=== PATIENT | female | born 1965 | race Caucasian/White ===

== ENCOUNTER 2021-03-23 14:26 | Emergency (ER) | payer BC, SELFPAY ==
--- NOTE | ~2021-03-23 | CT_ITS ---
EXAMINATION: CT HEAD WITHOUT CONTRAST CT CERVICAL SPINE WITHOUT CONTRAST CLINICAL INFORMATION: Fall. COMPARISON: None. TECHNIQUE: Multidetector CT imaging of the head and cervical spine was performed without the use of intravenous contrast. Multiplanar reformats are reviewed. This CT examination was performed using dose optimization techniques as appropriate, variously including the following: *Automated exposure control *Adjustment of mA and/or kV according to patient size (this includes techniques or standardized protocols for targeted exams where dose is matched to indication/reason for exam; i.e. extremities or head) *Use of iterative reconstruction technique DLP: 945 mGy-cm. FINDINGS: There is no evidence of acute intracranial hemorrhage or territorial infarction. No abnormal mass effect or midline shift is seen. Melendez to white matter differentiation is well preserved. No extra-axial fluid collections are identified. The ventricles are normal in size. There is no abnormal attenuation within the brain parenchyma. The osseous structures and soft tissues are normal. The mastoid air cells and visualized portions of the paranasal sinuses are well-aerated. Atlantooccipital alignment is maintained. The vertebral bodies and posterior elements align normally. No acute fracture or subluxation. Vertebral body heights are maintained.Endplate osteophytes present at C5-C6 and C6-C7 with accompanying uncovertebral arthrosis. This leads to mild bilateral foraminal narrowing at C5-C6. The cervicomedullary junction and spinal cord are grossly unremarkable. The paraspinal soft tissues are unremarkable. The imaged lung apices are clear CT/CT head/brain wo con IMPRESSION: No acute intracranial pathology. No cervical spine fracture or malalignment.
--- NOTE | ~2021-03-23 | CT_ITS ---
EXAMINATION: CT HEAD WITHOUT CONTRAST CT CERVICAL SPINE WITHOUT CONTRAST CLINICAL INFORMATION: Fall. COMPARISON: None. TECHNIQUE: Multidetector CT imaging of the head and cervical spine was performed without the use of intravenous contrast. Multiplanar reformats are reviewed. This CT examination was performed using dose optimization techniques as appropriate, variously including the following: *Automated exposure control *Adjustment of mA and/or kV according to patient size (this includes techniques or standardized protocols for targeted exams where dose is matched to indication/reason for exam; i.e. extremities or head) *Use of iterative reconstruction technique DLP: 945 mGy-cm. FINDINGS: There is no evidence of acute intracranial hemorrhage or territorial infarction. No abnormal mass effect or midline shift is seen. Melendez to white matter differentiation is well preserved. No extra-axial fluid collections are identified. The ventricles are normal in size. There is no abnormal attenuation within the brain parenchyma. The osseous structures and soft tissues are normal. The mastoid air cells and visualized portions of the paranasal sinuses are well-aerated. Atlantooccipital alignment is maintained. The vertebral bodies and posterior elements align normally. No acute fracture or subluxation. Vertebral body heights are maintained.Endplate osteophytes present at C5-C6 and C6-C7 with accompanying uncovertebral arthrosis. This leads to mild bilateral foraminal narrowing at C5-C6. The cervicomedullary junction and spinal cord are grossly unremarkable. The paraspinal soft tissues are unremarkable. The imaged lung apices are clear CT/CT cervical spine wo con IMPRESSION: No acute intracranial pathology. No cervical spine fracture or malalignment.
[2021-03-23 14:28] VITALS: BP 154/99; BP 162/80; PULSE 73; PULSE 80; RESP 18; TEMP 36.9; O2SAT 98; BMI 27.9
[2021-03-23 14:33] VITALS: BP 162/80; PULSE 73; RESP 18; O2SAT 97
--- NOTE | 2021-03-23 14:39 | ED.FALL ---
HPI - Fall General Chief Complaint: Fall Stated Complaint: fell, lower back pain Time Seen by Provider: 03/23/21 14:38 Source: patient Mode of arrival: ambulatory Limitations: no limitations History of Present Illness HPI Narrative: 55-year-old female who is brought to the emergency department by ambulance for evaluation of injuries from a fall. The patient was walking on hardwood floors with socks. She states that she slipped and her feet went out from under her causing her to fall backwards. She states that she landed on her head and then struck her ?tail bone ? on the floor. She had no loss of consciousness. She was unable to get off the floor. She called her cyst to her then called an ambulance. In route to the hospital the patient did complain of nausea and was given Zofran 4 mg IV by the paramedics. Here in the emergency department the patient is complaining of a headache. She states that the pain is located on the back of her head, the pain is constant, hard to describe and 3/10 at its worst. She is also complaining pain in her lower back along her tailbone area. She states that this pain is constant, hard to describe and 3/10. She denies any numbness or weakness. She denies chest pain or abdominal pain. The patient states that she completed her [employer] COVID 19 2 shot vaccination in January of 2021. Related Data Home Medications Medication Instructions Recorded Confirmed Fosamax 1 tab PO QWEEK 03/23/21 03/23/21 Previous Rx's Medication Instructions Recorded ondansetron 4 mg PO Q6-8H PRN #14 tab 03/23/21 Allergies Allergy/AdvReac Type Severity Reaction Status Date / Time No Known Allergies Allergy Unverified 07/10/20 15:52 Review of Systems Review of Systems: Yes all other systems are reviewed and are negative [facility] Past Medical History [facility] Narrative: Past medical history: Osteoporosis. Surgical history: Herniated disc with laparoscopic surgery to L5-S1. Social history: She denies tobacco, alcohol and drug use. Medical History (Updated 03/23/21 @ 16:32 by Leandro Churchill MD) Age related osteoporosis Herniated disc Social History Social History Alcohol intake: never Patient Tobacco Use Status: Never used Tobacco Use of substances other than those prescribed or required for medical reasons: No Advance Directives: No Advance Directives Information Provided: Yes Patient : No Physical Exam Vital Signs: Vital Signs: Last Vital Signs Temp 98.4 F 03/23/21 14:28 Pulse 73 03/23/21 14:33 Resp 18 03/23/21 14:33 BP 162/80 H 03/23/21 14:33 Pulse Ox 97 03/23/21 14:33 Body Mass Index 27.9 Const: General: cooperative; No in distress Orientation/consciousness: oriented to person and oriented to place Limitations: no limitations HENMT: Head: Yes normal to inspection, Yes normocephalic and Yes atraumatic Ears: external ears normal General nose exam: Normal external nose present Face and sinus: Yes normal facial exam Mouth: Normal oral and palatal mucosa present Throat: Yes posterior oropharynx normal Eyes: Periorbital: periorbital findings normal Eyelids: Yes eyelids normal Conjunctivae: conjunctivae normal Sclerae: sclerae normal Corneas: corneas normal Pupils: Equal, round and reactive pupils present Direct Ophthalmoscopy: normal light reflex Neck: Neck: Yes no lymphadenopathy, Yes trachea midline and Yes tender (Moderate, mid C-spine tenderness) Chest: Chest palpation & inspection: normal inspection of the chest and normal palpation of entire chest wall Resp: Effort & Inspection: normal respiratory effort and able to speak in complete sentences Auscultation: clear to auscultation bilaterally Cardio: Rate: regular rate Rhythm: regular rhythm Heart sounds: S1 normal heart sound present, S2 normal heart sound present and no murmurs GI: Inspection: Yes normal to inspection Palpation (GI): Soft to palpation, nontender, no guarding, not rigid and No hepatosplenomegaly present : General: Yes no CVA tenderness Back/Spine/Pelvis: Back: no CVA tenderness Cervical Spine: normal cervical lordosis Thoracic/Lumbar Spine: thoracic and lumbar spine normal to inspection Skin: Lesions: no lesions Rashes: no rashes Wounds: no wounds Neuro: General: oriented to person and oriented to place Cranial nerves: Yes CN's II-XII intact bilaterally and Yes Equal, round and reactive pupils present Cognition (Neuro): normal cognition Motor exam (neuro): 5/5 motor strength present throughout Extrem: General: Yes normal to inspection and Yes full ROM Psych: Appearance: well kempt Mental Status: mental status grossly normal Speech and movement: Normal speech and movement present Affect: normal affect Attitude: cooperative Thought process: Normal thought process present Thought content: Normal thought content present Course Course Course Narrative: 55-year-old female who presents emergency department for evaluation of injuries from a slip and fall at home. The patient did strike her head and lower back on the floor. She had no loss of consciousness. She is complaining of a headache and nausea and was given Zofran 4 mg IV EN route to the hospital with improvement of her nausea. The patient states that her headache and lower back pain or 3/10 at its worst. Physical examination did reveal posterior head tenderness as well as cervical spine tenderness. I ordered a CT scan of the head and cervical spine without IV contrast. The patient does not want any pain medications at this time. 1626: Patient's CT scan of the head and cervical spine revealed no acute fractures or bleed. The patient was taken out of C-spine precautions. I did examine the patient's back, there is no ecchymosis noted. The patient has no point tenderness over her vertebrae, there is no point tenderness over her coccyx region. The patient's presentation is consistent with acute head injury with concussion, cervical sprain and back contusion. Patient was given ibuprofen 600 mg orally for her pain and Zofran 4 mg ODT for her nausea. She was given printed instructions on head injury, neck sprain and contusions. She was advised to take ibuprofen and Tylenol for pain. She was also advised to take Zofran 4 mg ODT Q 8 hours as needed for pain. Discharge Plan Discharge Clinical Impression: Fall from slip, trip, or stumble, Head injury, Acute neck sprain, Back contusion Patient Disposition: Home, Self-Care Instructions: Cervical Strain (ED), Head Injury (ED) Additional Instructions: The CT scan of your head and neck revealed no broken bones and no bleeding in the brain which is reassuring. You sustained a concussion from your head injury. You strained the muscles of your neck from your fall. You also have bruising of your back from your fall. Take ibuprofen 200 mg pills, 3 pills every 6 hours as needed for pain. Take Tylenol (acetaminophen) 500 mg pills, 2 pills every 6 hours as needed for pain. For nausea and vomiting take Zofran (ondansetron) 4 mg oral dissolving tablets, 1 tablet dissolved in your mouth every 8 hours as needed. Follow-up with your doctor in 2 days. Please return to the emergency department if your symptoms get worse or if you develop any symptoms that are concerning to you. Prescriptions: New ondansetron 4 mg tablet,disintegrating 4 mg PO Q6-8H PRN (Reason: nausea and vomiting) Qty: 14 RF: 0 No Action Fosamax 1 tab PO QWEEK RF: 0 Stand Alone Forms: Work/School Release
[2021-03-23] MEDS: ondansetron HCL 4 MG/2 ML VIAL IVPUSH (17:04)
[2021-03-23] MEDS: Ibuprofen 600 MG TABLET PO (17:04)
--- NOTE | 2021-03-23 17:16 | PC.NURSE ---
heplock removed and pressure bandage applied. discharge instructions given to pt and spouse. Pt denies any questions. Pt is ambulatory to exit in no distress
== END 2021-03-23 17:17 | disposition home or self-care (01) ==
PROVIDERS: Emergency Provider Emergency Medicine Emergency Medical Services; PCP Nurse Practitioner Family
DX: S09.90XA Unspecified injury of head, initial encounter (principal); S13.9XXA Sprain of joints and ligaments of unspecified parts of neck, initial encounter; S30.0XXA Contusion of lower back and pelvis, initial encounter; W01.0XXA Fall on same level from slipping, tripping and stumbling without subsequent striking against object, initial encounter; Y93.89 Activity, other specified; Y92.019 Unspecified place in single-family (private) house as the place of occurrence of the external cause; Y99.9 Unspecified external cause status
CPT/HCPCS: 70450; 72125; 96374; 99284; J2405

== ENCOUNTER → 2021-09-09 09:50 | Outpatient (BNVA) | payer BC, SELFPAY | PROVIDERS: PCP Nurse Practitioner Family; Visit Provider Physician Assistant | DX: M77.11 Lateral epicondylitis, right elbow (principal); M77.12 Lateral epicondylitis, left elbow | CPT/HCPCS: 20551; J1100 ==

== ENCOUNTER 2021-09-29 10:00 | Outpatient (RCR) | payer BC, SELFPAY | END 2021-11-20 11:41 | disposition home or self-care (01) | LOC: HO.OT 10:00 | PROVIDERS: PCP Nurse Practitioner Family; Visit Provider Physician Assistant | DX: M77.11 Lateral epicondylitis, right elbow (principal); M77.12 Lateral epicondylitis, left elbow | CPT/HCPCS: 97110; 97140; 97166 ==

== ENCOUNTER 2021-11-30 12:47 | Emergency (ER) | payer BC, SELFPAY ==
--- NOTE | ~2021-11-30 | CT_ITS ---
EXAMINATION: CT HEAD WITHOUT CONTRAST CLINICAL INFORMATION: Fall with head injury. COMPARISON: None TECHNIQUE: Contiguous axial imaging was performed from the skull base to vertex without intravenous administration of contrast. This CT examination was performed using dose optimization techniques as appropriate, variously including the following: *Automated exposure control *Adjustment of mA and/or kV according to patient size (this includes techniques or standardized protocols for targeted exams where dose is matched to indication/reason for exam; i.e. extremities or head) *Use of iterative reconstruction technique DLP: 642 mGy-cm FINDINGS: There is no evidence of acute intracranial hemorrhage or territorial infarction. No abnormal mass effect or midline shift is seen. Melendez to white matter differentiation is well preserved. No extra-axial fluid collections are identified. The ventricles are normal in size. There is no abnormal attenuation within the brain parenchyma. The osseous structures and soft tissues are normal. The mastoid air cells and visualized portions of the paranasal sinuses are well aerated. CT/CT head/brain wo con IMPRESSION: No acute intracranial process seen..
[2021-11-30 12:49] VITALS: BP 153/83; PULSE 91; RESP 16; TEMP 36.8; O2SAT 96; BMI 28.3
--- NOTE | 2021-11-30 13:44 | ED_ITS ---
HPI - Fall General Chief Complaint: Fall Stated Complaint: fall - head injury Time Seen by Provider: 11/30/21 13:41 Source: patient Mode of arrival: ambulatory Limitations: no limitations History of Present Illness HPI Narrative: Patient is a 56 year old female presenting to the emergency department today with a headache after a slip and fall accident. Patient states that she slipped on the ice today and hit the back of her head. Patient states that she is now having a headache. Patient states that she hit her head and had a concussion similar to this in February of last year. Patient denies any loss of consciousness with the incident. Patient denies any other injuries from the incident. Patient denies any dizziness, lightheadedness, abdominal pain, nausea, vomiting, fever, chills, blurry vision, double vision, loss of vision, chest pain, difficulty breathing, shortness of breath, back pain, night sweats, pain with urination, increased urinary frequency, increased urinary urgency, blood in her urine or stool, syncope or a near syncopal episode, bowel incontinence, bladder incontinence, bowel retention, bladder retention, or any other complaints at this time. Patient denies any anti-coagulation use. MD complaint: fall Onset (ago): minute(s) Fall from: standing Fall witnessed: no Place fall occurred: home Loss of consciousness: none Prolonged down time: no Symptoms prior to fall: none Severity: mild Related Data Home Medications Medication Instructions Recorded Confirmed Fosamax 1 tab PO QWEEK 03/23/21 03/23/21 Previous Rx's Medication Instructions Recorded ondansetron 4 mg disintegrating 4 mg PO Q6-8H PRN #14 tab 03/23/21 tablet Allergies Allergy/AdvReac Type Severity Reaction Status Date / Time No Known Allergies Allergy Verified 11/30/21 12:49 Review of Systems Constitutional: Constitutional: Reports no additional constitutional complaints, Denies chills, Denies fever(s) and Denies night sweats Eyes: Eyes: Reports no additional eye complaints, Denies blurry vision, Denies change in vision, Denies diplopia, Denies eye discharge, Denies loss of vision and Denies eye pain ENT: Denies dizziness Cardiovascular: Cardiovascular: Reports no additional cardiovascular complaints, Denies chest pain, Denies lightheadedness, Denies Loss of Consciousness and Denies dyspnea Respiratory: Respiratory: Reports no additional respiratory complaints and Denies dyspnea Gastrointestinal: Gastrointestinal: Reports no additional gastrointestinal complaints, Denies abdominal pain, Denies melena, Denies hematochezia, Denies change in bowel habits and Denies change in stool character Genitourinary: Genitourinary: Denies hematuria, Denies urinary frequency, Denies dysuria, Denies urinary incontinence, Denies urinary hesitancy and Denies urinary urgency Musculoskeletal: Musculoskeletal: Reports no additional musculoskeletal complaints, Denies numbness and Denies tingling Neurologic: Denies dizziness, Denies loss of vision, Denies numbness and Denies tingling Psychiatric: Psychiatric: Reports no additional psychiatric complaints Endocrine: Endocrine: Reports no additional endocrine complaints Hematologic/Lymphatic: Hematologic/Lymphatic: Reports no additional hematologic/lymphatic complaints Allergic/Immunologic: Allergic/Immunologic: Reports no additional allergic/immunologic complaints [facility] Past Medical History Attestation statement: The following information was validated with the patient. Source: old records reviewed Medical History Age related osteoporosis Herniated disc Social History Social History Alcohol intake: never Patient Tobacco Use Status: Never used Tobacco Advance Directives: No Advance Directives Information Provided: No Patient : No Current occupational status: employed Current occupation: [employer]/ [employer] Physical Exam Vital Signs: Vital Signs: Last Vital Signs Temp 98.3 F 11/30/21 12:49 Pulse 91 11/30/21 12:49 Resp 16 11/30/21 12:49 BP 153/83 H 11/30/21 12:49 Pulse Ox 96 11/30/21 12:49 BMI result Body Mass Index 28.3 Const: General: cooperative, no acute distress, alert and awake Nutritional Appearance: well nourished Orientation/consciousness: patient oriented x3 Limitations: no limitations HENMT: Head: Yes normal to inspection and Yes atraumatic Ears: hearing grossly normal bilaterally and external ears normal General nose exam: Normal external nose present, no nasal discharge noted and no epistaxis Face and sinus: Yes normal facial exam, No abrasion and No laceration Mouth: Normal oral and palatal mucosa present, no drooling and no muffled voice Eyes: General: appearance normal, both eyes and all related structures Periorbital: periorbital findings normal Eyelids: Yes eyelids normal Conjunctivae: conjunctivae normal Pupils: Equal, round and reactive pupils present EOM: EOMs intact bilaterally Neck: Neck: Yes normal visual inspection, Yes full ROM and Yes no lymphadenopathy Chest: Chest palpation & inspection: normal inspection of the chest Resp: Effort & Inspection: normal respiratory effort and able to speak in complete sentences Auscultation: clear to auscultation bilaterally Cardio: Rhythm: regular rhythm Heart sounds: S1 normal heart sound present GI: Inspection: Yes normal to inspection Neuro: General: patient oriented x3 and moves all extremities Cranial nerves: Yes Equal, round and reactive pupils present Cognition (Neuro): normal cognition Motor exam (neuro): 5/5 motor strength present throughout Sensory Exam: Normal double simultaneous stimulation for sensation Coordination: [id number] test normal Pupils: Normal pupillary reactivity/response: bilateral Extrem: General: Yes normal to inspection, Yes full ROM and Yes capillary refill normal Psych: Appearance: grossly normal Mental Status: mental status grossly normal Affect: normal affect Attitude: cooperative Thought process: Normal thought process present Thought content: Normal thought content present Insight: Good insight present (Psych) NIH Stroke Scale Internal: Initial- Upon Arrival Time: 13:41 Level of Consciousness: Alert Level of Consciousness Questions: Answers both questions correctly Level of Consciousness Commands: Performs both tasks correctly Best Gaze: Normal Visual: No visual loss Facial Palsy: Normal Motor Arm (Right): No drift Motor Arm (Left): No drift Motor Leg (Right): No drift Motor Leg (Left): No drift Limb Ataxia: Absent Sensory: Normal Best Language: No aphasia Dysarthia: Normal Extinction and Inattention: No abnormality Score: 0 MDM - Fall MDM Narrative Medical decision making narrative: Patient is a 56 year old female presenting to the emergency department today with a headache after slipping and falling on the ice. Patient's physical exam was unremarkable. Patient's head CT showed no acute process. I explained my physical exam findings as well as all test results to the patient. I answered all questions asked by the patient. Patient received IM Benadryl and Toradol, a nd PO Zofran which she stated helped her symptoms significantly. I stressed the importance of the patient taking her medication as prescribed. I stressed the importance of the patient following up with her primary care provider. I stressed the importance of the patient returning to the emergency department immediately if her symptoms were to worsen or if she were to develop any dizziness, shortness of breath, difficulty breathing, chest pain, blurry vision, loss of vision, nausea, vomiting, abdominal pain, fever, chills, back pain, or any other complaints. Patient verbalized agreement and understanding with this treatment plan and discharge. Differential Diagnosis Differential diagnosis: Likely concussion without loss of consciousness (closed head injury, headache) Medical Records Attestation: I reviewed the patient's medical records. Imaging Data Head CT : Attestation: I personally reviewed and interpreted this imaging study as follows: Radiologist's impression: EXAMINATION: CT HEAD WITHOUT CONTRAST CLINICAL INFORMATION: Fall with head injury.? COMPARISON: None TECHNIQUE: Contiguous axial imaging was performed from the skull base to vertex without intravenous administration of contrast. This CT examination was performed using dose optimization techniques as appropriate, variously including the following: *Automated exposure control *Adjustment of mA and/or kV according to patient size (this includes techniques or standardized protocols for targeted exams where dose is matched to indication/reason for exam; i.e. extremities or head) *Use of iterative reconstruction technique DLP: 642 mGy-cm FINDINGS: There is no evidence of acute intracranial hemorrhage or territorial infarction. No abnormal mass effect or midline shift is seen. Melendez to white matter differentiation is well preserved. No extra-axial fluid collections are identified. The ventricles are normal in size. There is no abnormal attenuation within the brain parenchyma. The osseous structures and soft tissues are normal. The mastoid air cells and visualized portions of the paranasal sinuses are well aerated. ? CT/CT head/brain wo con IMPRESSION: No acute intracranial process seen. Dictated By: Jas Morton MD Signed By: Electronically signed by Jas Morton MD 11/30/21 Discharge Plan Discharge Clinical Impression: Fall, Concussion Patient Disposition: Home, Self-Care Instructions: Fall Prevention (ED), Concussion (ED) Additional Instructions: Follow up with your primary care provider. Return to the emergency department immediately if your symptoms worsen or if you develop any dizziness, shortness of breath, difficulty breathing, chest pain, blurry vision, loss of vision, nausea, vomiting, abdominal pain, fever, chills, back pain, or any other complaints. Prescriptions: No Action Fosamax 1 tab PO QWEEK 0RF ondansetron 4 mg tablet,disintegrating 4 mg PO Q6-8H PRN (Reason: nausea and vomiting) Qty: 14 0RF Referrals: Carolin Finley [employer] [Primary Care Provider] - 2 days Stand Alone Forms: Work/School Release Interventions: ED Discharge Assessment Last Done: 11/30/21 16:08 Discharge Date/Time: 11/30/21 16:09 Print Language: Bengali
[2021-11-30] MEDS: diphenhydrAMINE HCL 50 MG/ML VIAL IM (16:02)
[2021-11-30] MEDS: Ondansetron ODT 4 MG TAB.RAPDIS TRANSLINGU (16:02)
[2021-11-30] MEDS: Ketorolac Tromethamine 30 MG/ML VIAL IM (16:03)
== END 2021-11-30 16:09 | disposition home or self-care (01) ==
PROVIDERS: Emergency Provider Emergency Medicine; PCP Nurse Practitioner Family
DX: S06.0X0A Concussion without loss of consciousness, initial encounter (principal); W00.0XXA Fall on same level due to ice and snow, initial encounter; Y93.01 Activity, walking, marching and hiking; Y92.018 Other place in single-family (private) house as the place of occurrence of the external cause; Y99.9 Unspecified external cause status
CPT/HCPCS: 70450; 96372; 99284; J1200; J1885

== ENCOUNTER 2022-02-17 23:36 | Inpatient (IN) | payer BC, SELFPAY ==
--- NOTE | ~2022-02-17 | CT_ITS ---
EXAMINATION: CT ABDOMEN AND PELVIS WITH CONTRAST CLINICAL INFORMATION: Epigastric pain. COMPARISON: None TECHNIQUE: Multidetector volumetric images were obtained from the superior aspect of the liver through the pubic symphysis following administration 85 mL of Omnipaque 350 intravenous contrast. Sagittal and coronal reformatted images were obtained on the technologist's workstation. Oral contrast: No This CT examination was performed using dose optimization techniques as appropriate, variously including the following: *Automated exposure control *Adjustment of mA and/or kV according to patient size (this includes techniques or standardized protocols for targeted exams where dose is matched to indication/reason for exam; i.e. extremities or head) *Use of iterative reconstruction technique DLP: 599 mGy-cm FINDINGS: LUNG BASES: Minimal bibasilar dependent atelectasis of the lungs. LIVER, GALLBLADDER, AND BILIARY TREE: The liver is normal in size, shape, and attenuation. No focal hepatic lesion or biliary ductal dilatation is present. The gallbladder is unremarkable with no evidence of radiopaque gallstones, gallbladder wall thickening, or obvious pericholecystic inflammatory changes. PANCREAS: Unremarkable. SPLEEN: Unremarkable. ADRENAL GLANDS: Unremarkable. KIDNEYS AND URETERS: Bilaterally symmetric nephrographic enhancement. No hydronephrosis or perinephric inflammatory changes. No urolithiasis. No dilatation of the ureters. BLADDER: Unremarkable. GASTROINTESTINAL TRACT: The stomach is decompressed and is normal in appearance. No inflammatory changes of the duodenum noted. Fluid-filled jejunal segments measuring up to 2.5 cm in diameter, within normal limits of size are noted without evidence of mural thickening or mural inflammatory changes. No inflammatory changes of the sigmoid or small bowel mesentery is are visualized. The appendix is normal in appearance aside from a 3 mm possible fundal appendicolith (series 3 image 50). No mesenteric lymphadenopathy identified. No free intraperitoneal fluid or gas collections visualized. The terminal ileum is normal in appearance. No colonic diverticulosis noted. The colon is largely collapsed. A transition from dilated to nondilated small bowel segments is noted within the right lower abdominal quadrant (series 7 image 23, series 3 image 59 with mild fecalization of the succus entericus in this region. ABDOMINAL WALL: No significant hernia is appreciated. LYMPH NODES: Normal. VASCULAR: Unremarkable. PELVIC VISCERA: Uterus is not visualized. No adnexal lesions noted. OSSEOUS STRUCTURES: Moderate intervertebral disc space narrowing and vacuum phenomena at L5-S1. Partial visualization of a possible focal cranially oriented disc extrusion measuring 9 mm in craniocaudal dimension (series 8 image 58). CT/CT abdomen pelvis w con IMPRESSION: *Mildly prominent caliber of multiple fluid-filled small bowel segments measuring up to 2.5 cm in diameter, still within normal limits of size with a transition between prominent and otherwise collapsed small bowel segments within the right lower abdominal quadrant as detailed above. The degree of small bowel dilatation is not definitively abnormal. Findings are weakly suspicious for possible gastroenteritis or possible mild small bowel dilatation related to low-grade partial obstruction centered in the right lower abdominal quadrant. No free intraperitoneal fluid or gas collections. *Partially visualized L5-S1 herniated disc extrusion as detailed above.
--- NOTE | ~2022-02-17 | XR_ITS ---
EXAMINATION: XR ABDOMEN KUB CLINICAL INDICATION: Follow-up for SBO. COMPARISON: CT abdomen and pelvis 02/18/2022 TECHNIQUE: AP view of the abdomen. FINDINGS: There is scattered stool and gas seen in the colon without distention. The small bowel loops are unremarkable. No air-fluid levels seen. No radiopaque calculi or organomegaly. No gross bony abnormality. XR/XR KUB IMPRESSION: No evidence of bowel obstruction seen.
[2022-02-17 23:44] VITALS: BP 131/67; PULSE 67; RESP 16; TEMP 36.7; O2SAT 100
[2022-02-17 23:53] VITALS: BP 131/67; BP 141/67; PULSE 67; RESP 16; TEMP 36.7; O2SAT 100; BMI 29.0
[2022-02-18] VITALS (8 sets, daily range): BP systolic 98–115; BP diastolic 49–60; PULSE 61–71; RESP 14–18; TEMP 36.3–37.1; O2SAT 94–99
--- NOTE | 2022-02-18 00:19 | ED_ITS ---
HPI - Abdominal Pain General Chief Complaint: Abdominal Pain Stated Complaint: EPIGASTRIC PAIN Time Seen by Provider: 02/18/22 00:19 Source: patient Mode of arrival: ambulatory Limitations: no limitations History of Present Illness HPI narrative: Patient with no significant past medical history complaining of mid abdominal pain since afternoon today followed by nausea vomiting diarrhea had multiple times of vomiting about 6-7 times same time has diarrhea no fever no chills no other family member sick no fever noted patient had partial bowel obstruction 4 years ago Related Data Home Medications Medication Instructions Recorded Confirmed No Known Home Meds 02/18/22 02/18/22 Allergies Allergy/AdvReac Type Severity Reaction Status Date / Time No Known Allergies Allergy Verified 11/30/21 12:49 Review of Systems Review of Systems Yes all other systems are reviewed and are negative [facility] Past Medical History Medical History Age related osteoporosis Herniated disc Social History Social History Alcohol intake: never Patient Tobacco Use Status: Never used Tobacco Advance Directives: No Advance Directives Information Provided: Yes Current occupational status: employed Current occupation: [employer] Physical Exam ED Vital Signs: Vital Signs - 24 hr 02/17/22 23:44 02/17/22 23:53 02/18/22 06:00 Temperature 98.0 F 98.0 F 98.3 F Pulse Rate 67 67 64 Respiratory Rate 16 16 16 Blood Pressure 131/67 131/67 99/52 L Pulse Oximetry 100 100 97 BMI result Body Mass Index 29.0 Appearance: Alert. Oriented X3. In moderate distress. Eyes: No pallor or icterus ENT: Pharynx normal. Oral Mucosa moist Neck: Normal inspection. Neck supple. CVS: Normal heart rate and rhythm. Pulses normal. Respiratory: No respiratory distress. Equal air entry bilateral, Abdomen: Soft , mod abdominal tenderness no rebound tenderness guarding Bowel sounds are present, no mass palpable, no CVA tenderness Skin: Skin warm and dry. Normal skin color. Normal skin turgor. Extremities: No lower extremity edema. No calf tenderness Neuro: Oriented X 3. Course Reevaluation(s) Reevaluation #1: Case discussed with surgeon Dr. Galan will admit the patient to his service at this time patient not nauseated or vomiting will hold for NG tube Dr. Canales will come and decided later Time: 05:57 MDM - Abdominal Pain MDM Narrative Medical decision making narrative: Patient with mid abdominal pain with nausea vomiting and diarrhea incidentally noticed to have thrombocytopenia no history of any bleeding no previous platelet counts at [facility]. Will do CT scan of the abdomen to rule out any SBO patient is still having the pain. Patient did have a history of partial bowel obstruction 4 years ago had hysterectomy in the past likely the cause for partial bowel obstruction Lab Data Attestation: I reviewed the patient's lab results. Result diagrams: 02/18/22 00:54 02/18/22 00:54 Labs: Lab Results 02/18/22 02/18/22 02/18/22 Range/Units 00:54 00:54 01:30 WBC 10.1 (4.8-10.8) X10*3/uL RBC 4.81 (4.20-5.50) X10*6/uL Hgb 13.4 (12.0-16.0) g/dl Hct 40.9 (37.0-47.0) % MCV 85.0 (80.0-98.0) fL MCH 27.9 (27.0-33.0) pg MCHC 32.8 (31.0-35.0) g/dl RDW 12.7 (11.0-16.0) % Plt Count 56 L (160-400) X10*3/uL MPV 11.8 (9.4-12.3) fL Immature Gran % (Auto) 0.3 (0.0-0.4) % Neut % (Auto) 84.6 H (45-73) % Lymph % (Auto) 9.2 L (20-40) % [place] % (Auto) 5.6 (2-11) % Eos % (Auto) 0.0 (0-4) % Baso % (Auto) 0.3 (0-2) % Lymph # (Auto) 0.9 L (1.2-4.9) X10*3/uL [place] # (Auto) 0.6 (0.1-1.2) X10*3/uL Eos # (Auto) 0.0 (0.0-0.4) X10*3/uL Baso # (Auto) 0.0 (0.0-0.2) X10*3/uL Abs Immat Gran (auto) 0.03 (0.00-0.03) X10*3/uL Absolute Neuts (auto) 8.5 H (2.0-8.3) x10*3/uL Absolute Nucleated RBC 0.000 (0.0-0.012) X10*3/uL Nucleated RBC % (auto) 0.0 (0.0-0.2) /100WBC Sodium 139 (135-145) mmol/L Potassium 4.1 (3.3-5.1) mmol/L Chloride 104 (96-108) mmol/L Carbon Dioxide 27 (22-29) mmol/L Anion Gap 12 (12-20) BUN 24 H (9-16) mg/dL Creatinine 0.80 (0.5-1.4) mg/dL Estim Creat Clear Calc 77.8 Estimated GFR > 60 Random Glucose 161 H (60-115) mg/dL Calcium 9.5 (8.4-10.2) mg/dL Total Bilirubin 0.8 (0.0-1.0) mg/dL AST 26 (5-31) U/L ALT 24 (0-31) U/L Alkaline Phosphatase 79 (39-117) U/L Total Protein 7.4 (6.5-8.0) g/dL Albumin 4.1 (3.5-5.0) g/dL Lipase 26 (8-78) U/L COVID-19 (ABIMAEL) Negative (Negative) COVID-19 Clin Com See Note Discharge Plan Discharge Clinical Impression: Partial bowel obstruction Patient Disposition: Admitted As Inpatient
[2022-02-18] MEDS: ondansetron HCL 4 MG/2 ML VIAL IVPUSH ×2 (00:31→19:26)
[2022-02-18] MEDS: Famotidine/PF 20 MG/2 ML VIAL IVPUSH (00:31)
[2022-02-18] MEDS: 0.9 % Sodium Chloride 1,000 ML 999 ML IV (00:31)
[2022-02-18] MEDS: Morphine Sulfate 4 MG/ML CARTRIDGE IVPUSH ×2 (00:31→04:12)
[2022-02-18 00:58] LABS: Basophils Percent Auto 0.3 % (0-2); Hematocrit 40.9 % (37.0-47.0); Hemoglobin 13.4 g/dl (12.0-16.0); Imm Gran Abs Auto 0.03 X10*3/uL (0.00-0.03); Imm Gran Pct Auto 0.3 % (0.0-0.4); Lymphocytes Absolute Auto 0.9 X10*3/uL (1.2-4.9); Lymphocytes Percent Auto 9.2 % (20-40); MANUAL DIFF FLAG NO; Mean Corpuscular HGB Conc 32.8 g/dl (31.0-35.0); Mean Corpuscular Hemoglobin 27.9 pg (27.0-33.0); Mean Platelet Volume 11.8 fL (9.4-12.3); Monocytes Absolute Auto 0.6 X10*3/uL (0.1-1.2); Monocytes Percent Auto 5.6 % (2-11); Neutrophils Absolute Auto 8.5 x10*3/uL (2.0-8.3); Neutrophils Percent Auto 84.6 % (45-73); Red Blood Count 4.81 X10*6/uL (4.20-5.50); Red Cell Distribution Width 12.7 % (11.0-16.0); White Blood Count 10.1 X10*3/uL (4.8-10.8)
[2022-02-18 01:03] LABS: Platelet Count 56 X10*3/uL (160-400)
[2022-02-18 01:16] LABS: Alanine Aminotransferase 24 U/L (0-31); Albumin Level 4.1 g/dL (3.5-5.0); Alkaline Phosphatase 79 U/L (39-117); Anion Gap 12 (12-20); Aspartate Amino Transferase 26 U/L (5-31); Bilirubin Total 0.8 mg/dL (0.0-1.0); Blood Urea Nitrogen 24 mg/dL (9-16); Calcium 9.5 mg/dL (8.4-10.2); Carbon Dioxide 27 mmol/L (22-29); Chloride 104 mmol/L (96-108); Creatinine Clr Calc Pharmacy 77.8; Estimated Glomerular Filt Rate > 60; Glucose Random 161 mg/dL (60-115); Lipase 26 U/L (8-78); Potassium 4.1 mmol/L (3.3-5.1); Sodium 139 mmol/L (135-145); Total Protein 7.4 g/dL (6.5-8.0)
[2022-02-18 01:48] LABS: COVID-19 Test Negative (Negative)
[2022-02-18] MEDS: iohexoL 350 MG/ML 100 ML INFUS..BTL 85 ML IV (04:53)
--- NOTE | 2022-02-18 06:05 | PC.NURSE ---
MD at bedside discussing results of CT, plan for admission. Med Rec completed by this RN.
--- NOTE | 2022-02-18 08:17 | P.HPGS_ITS ---
History of Present Illness History of Present Illness Date of Service: 02/23/22 Chief complaint: partial small bowel obstruction Narrative: Evelyn Warner is a 56 year old female who started to have diffuse abdominal pain at around 02:00 o'clock yesterday afternoon. She says this persisted throughout the day. She started to have nausea later yesterday and multiple episodes of vomiting at home. She therefore came to the ER last night. She says she had a similar episode while on vacation in [place] about 5 years ago and was admitted because of bowel obstruction She describes having hysterectomy about 10 years ago for fibroids. She also says she has some water stools yesterday. She denies recall of flatus since yesterday. She had dry heaving until midnightbut says she started to feel a lot more comfortable early this morning. Review of Systems Constitutional: Constitutional: Denies chills and Denies fever(s) Cardiovascular: Cardiovascular: Denies chest pain, Denies dyspnea and Denies dyspnea on exertion Respiratory: Respiratory: Denies cough, Denies dyspnea and Denies dyspnea on exertion Gastrointestinal: Gastrointestinal: Denies hematochezia and Denies change in bowel habits Genitourinary: Genitourinary: Denies hematuria Musculoskeletal: Musculoskeletal: Denies back pain and Denies limited range of motion Neurologic: Denies focal weakness and Denies convulsions Psychiatric: Psychiatric: Denies depression and Denies mood swings PMF Past Medical History Medical History Age related osteoporosis Herniated disc Social History Social History Household Members: Spouse and Children Housing: House Do you presently have visiting nurse or other home services: No Alcohol intake: never Patient Tobacco Use Status: Never used Tobacco service: No Current occupational status: employed Current occupation: lt [employer] Allergies Allergy/AdvReac Type Severity Reaction Status Date / Time No Known Allergies Allergy Verified 11/30/21 12:49 Active Medications: Current Medications Heparin Sodium (Porcine) (Heparin Sodium,Porcine 5,000 Unit/Ml Vial) 5,000 unit SUBCUT Q12H BITA Lactated Ringer's (Lr) 500 mls @ 100 mls/hr IVCONT .Q5H BITA Ondansetron HCl (Ondansetron Hcl 4 Mg/2 Ml Vial) 4 mg IVPUSH Q8H PRN PRN Reason: nausea Sodium Chloride (0.9 % Sodium Chloride Flush 3 Ml Syringe) 3 ml IVFLUSH QSHIFT [facility] Home Medications Medication Instructions Recorded Confirmed Last Taken Type ascorbic acid (vitamin C) 500 mg 500 mg PO DAILY 02/18/22 02/18/22 02/16/22 History chewable tablet (Vitamin C) cholecalciferol (vitamin D3) 25 25 mcg PO DAILY 02/18/22 02/18/22 02/16/22 History mcg (1,000 unit) tablet multivitamin 1 tab PO DAILY 02/18/22 02/18/22 02/16/22 History Physical Exam Vital Signs: Vital Signs: Last Vital Signs Temp 98.5 F 02/18/22 07:12 Pulse 61 02/18/22 07:12 Resp 18 02/18/22 07:12 BP 98/49 L 02/18/22 07:12 Pulse Ox 98 02/18/22 07:12 BMI result Body Mass Index 29.0 Const: General: comfortable and no acute distress Orientation/consciousness: patient oriented x3 Neck: Neck: Yes no lymphadenopathy Resp: Auscultation: clear to auscultation bilaterally Cardio: Rhythm: regular rhythm GI: Other: Mildly tender diffusely, not significantly distended Palpation (GI): Soft to palpation, Tenderness to palpation present (GI), no guarding and No Rebound tenderness present Neuro: General: patient oriented x3 Results Results Labs: Short CBC 02/18/22 Range/Units 00:54 WBC 10.1 (4.8-10.8) X10*3/uL Hgb 13.4 (12.0-16.0) g/dl Hct 40.9 (37.0-47.0) % Plt Count 56 L (160-400) X10*3/uL BMP 02/18/22 00:54 Sodium 139 Potassium 4.1 Chloride 104 Carbon Dioxide 27 BUN 24 H Creatinine 0.80 Calcium 9.5 Liver Function 02/18/22 Range/Units 00:54 Total Bilirubin 0.8 (0.0-1.0) mg/dL AST 26 (5-31) U/L ALT 24 (0-31) U/L Alkaline Phosphatase 79 (39-117) U/L Albumin 4.1 (3.5-5.0) g/dL Abdomen CT scan report/results: report reviewed and image reviewed CT scan - pelvis: report reviewed and image reviewed Additional studies: Laboratory Results WBC 10.1 X10*3/uL (4.8-10.8) 02/18/22 00:54 RBC 4.81 X10*6/uL (4.20-5.50) 02/18/22 00:54 Hgb 13.4 g/dl (12.0-16.0) 02/18/22 00:54 Hct 40.9 % (37.0-47.0) 02/18/22 00:54 MCV 85.0 fL (80.0-98.0) 02/18/22 00:54 MCH 27.9 pg (27.0-33.0) 02/18/22 00:54 MCHC 32.8 g/dl (31.0-35.0) 02/18/22 00:54 RDW 12.7 % (11.0-16.0) 02/18/22 00:54 Plt Count 56 X10*3/uL (160-400) L 02/18/22 00:54 MPV 11.8 fL (9.4-12.3) 02/18/22 00:54 Immature Gran % (Auto) 0.3 % (0.0-0.4) 02/18/22 00:54 Neut % (Auto) 84.6 % (45-73) H 02/18/22 00:54 Lymph % (Auto) 9.2 % (20-40) L 02/18/22 00:54 [place] % (Auto) 5.6 % (2-11) 02/18/22 00:54 Eos % (Auto) 0.0 % (0-4) 02/18/22 00:54 Baso % (Auto) 0.3 % (0-2) 02/18/22 00:54 Lymph # (Auto) 0.9 X10*3/uL (1.2-4.9) L 02/18/22 00:54 [place] # (Auto) 0.6 X10*3/uL (0.1-1.2) 02/18/22 00:54 Eos # (Auto) 0.0 X10*3/uL (0.0-0.4) 02/18/22 00:54 Baso # (Auto) 0.0 X10*3/uL (0.0-0.2) 02/18/22 00:54 Abs Immat Gran (auto) 0.03 X10*3/uL (0.00-0.03) 02/18/22 00:54 Absolute Neuts (auto) 8.5 x10*3/uL (2.0-8.3) H 02/18/22 00:54 Absolute Nucleated RBC 0.000 X10*3/uL (0.0-0.012) 02/18/22 00:54 Nucleated RBC % (auto) 0.0 /100WBC (0.0-0.2) 02/18/22 00:54 Sodium 139 mmol/L (135-145) 02/18/22 00:54 Potassium 4.1 mmol/L (3.3-5.1) 02/18/22 00:54 Chloride 104 mmol/L (96-108) 02/18/22 00:54 Carbon Dioxide 27 mmol/L (22-29) 02/18/22 00:54 Anion Gap 12 (12-20) 02/18/22 00:54 BUN 24 mg/dL (9-16) H 02/18/22 00:54 Creatinine 0.80 mg/dL (0.5-1.4) 02/18/22 00:54 Estim Creat Clear Calc 77.8 02/18/22 00:54 Estimated GFR > 60 02/18/22 00:54 Random Glucose 161 mg/dL (60-115) H 02/18/22 00:54 Calcium 9.5 mg/dL (8.4-10.2) 02/18/22 00:54 Total Bilirubin 0.8 mg/dL (0.0-1.0) 02/18/22 00:54 AST 26 U/L (5-31) 02/18/22 00:54 ALT 24 U/L (0-31) 02/18/22 00:54 Alkaline Phosphatase 79 U/L (39-117) 02/18/22 00:54 Total Protein 7.4 g/dL (6.5-8.0) 02/18/22 00:54 Albumin 4.1 g/dL (3.5-5.0) 02/18/22 00:54 Lipase 26 U/L (8-78) 02/18/22 00:54 COVID-19 (ABIMAEL) Negative (Negative) 02/18/22 01:30 COVID-19 Clin Com See Note 02/18/22 01:30 Impressions Abdomen/Pelvis CT 02/18/22 04:53 IMPRESSION: *Mildly prominent caliber of multiple fluid-filled small bowel segments measuring up to 2.5 cm in diameter, still within normal limits of size with a transition between prominent and otherwise collapsed small bowel segments within the right lower abdominal quadrant as detailed above. The degree of small bowel dilatation is not definitively abnormal. Findings are weakly suspicious for possible gastroenteritis or possible mild small bowel dilatation related to low-grade partial obstruction centered in the right lower abdominal quadrant. No free intraperitoneal fluid or gas collections. *Partially visualized L5-S1 herniated disc extrusion as detailed above. Assessment and Plan (1) Partial bowel obstruction: Status: Acute She came to the ER last night because of diffuse abdominal pain, and multiple episodes of vomiting. She does state that she had a history of partial small- bowel obstruction 5 years ago. Her CAT scan is suggestive of mild small-bowel obstruction with a likely transition point in the right lower quadrant. Etiology is probably from her previous hysterectomy. She does feel much better this morning. She has a very benign exam. She will be kept NPO but I will re-evaluate her in a few hours and I may be able to started on clear liquids. He will be hydrated with IV fluids. I explained to her the plan and she is comfortable with this. Quality Stroke Does the patient have a stroke diagnosis?: No VTE Prior VTE?: No VTE Risk Level:: Medical - moderate - high VTE Device Contraindication: N/A - Device Ordered VTE Drug Contraindication: N/A - Med Ordered Procedures Date of Service Date of Service: 02/18/22
--- NOTE | 2022-02-18 08:31 | PC.NURSE ---
PT SEEN BY DR. SMITH X 2, PT AWARE OF PLAN OF CARE.
--- NOTE | 2022-02-18 08:59 | PHA.MEDREC ---
Pharmacy Consult ? Medication Reconciliation Pharmacy has completed the medication reconciliation. No remarkable issues. Vciki Monae, DaeD
[2022-02-18] MEDS: Lactated Ringers 500 ML 100 ML IVCONT (09:37)
[2022-02-18] MEDS: 0.9 % Sodium Chloride Flush 3 ML SYRINGE IVFLUSH (09:48)
[2022-02-18] MEDS: Morphine Sulfate 2 MG/ML CARTRIDGE IVPUSH ×2 (09:48→19:33)
[2022-02-18] MEDS: Heparin Sodium,Porcine 5,000 UNIT/ML VIAL 5000 UNIT SUBCUT ×2 (09:49→19:26)
--- NOTE | 2022-02-18 13:40 | MHC.CM.PN ---
PT REPORTS SHE LIVES WITH HER AND IS INDEPENDENT WITH CARE, WORKS AND DRIVES PT HAS NO HOME SERVICES AND USES NO DME PT REPORTS SHE HAS A HCP NAMING HER HER AGENT PCP: REBECCA ARIAS PT REPORTS SHE IS COVID-19 VACCINATED CURRENT DC PLAN IS HOME WITH NO SERVICES FAMILY TO TRANSPORT
--- NOTE | 2022-02-18 13:53 | PC.NURSE ---
Pt alert and oriented, able to make needs known. LS clear. c/o mild abd pain and headache, lights turned off ad door closed slightly so pt can rest, call be in reach
--- NOTE | 2022-02-18 16:22 | PM.EVENT ---
Event Note Date of Service: 02/18/22 Event Note: Says she feels ?okay? Minimal abdominal pain Denies flatus No nausea or vomiting all day Stable vital signs Abdomen remained soft and benign Repeat x-ray tomorrow morning Hope to be able to start clear liquids tomorrow
[2022-02-18] MEDS: Lactated Ringers 1,000 ML 100 ML IVCONT (19:26)
[2022-02-18] MEDS: Acetaminophen 325 MG TABLET 650 MG PO (22:03)
[2022-02-19 06:26] LABS: Hematocrit 37.5 % (37.0-47.0); Hemoglobin 11.9 g/dl (12.0-16.0); Mean Corpuscular HGB Conc 31.7 g/dl (31.0-35.0); Mean Corpuscular Hemoglobin 27.6 pg (27.0-33.0); Mean Platelet Volume 12.1 fL (9.4-12.3); PLT CLUMP 1; Red Blood Count 4.31 X10*6/uL (4.20-5.50); Red Cell Distribution Width 12.9 % (11.0-16.0)
[2022-02-19 06:46] LABS: White Blood Count 4.3 X10*3/uL (4.8-10.8)
[2022-02-19 06:52] LABS: Anion Gap 9 (12-20); Blood Urea Nitrogen 9 mg/dL (9-16); Calcium 8.9 mg/dL (8.4-10.2); Carbon Dioxide 28 mmol/L (22-29); Chloride 106 mmol/L (96-108); Estimated Glomerular Filt Rate > 60; Glucose Random 89 mg/dL (60-115); Potassium 3.9 mmol/L (3.3-5.1); Sodium 139 mmol/L (135-145)
[2022-02-19 07:57] VITALS: BP 125/65; PULSE 61; RESP 18; TEMP 36.4; O2SAT 98
--- NOTE | 2022-02-19 07:57 | PM.PNGS ---
Subjective Subjective Date of Service: 02/19/22 <Brina Guzman PA-C - Last Filed: 02/19/22 08:01> 02/20/22 <Yonis Galan MD - Last Filed: 02/20/22 14:47> Interval history: Feels ok. No significant pain or nausea. Began passing flatus this morning. Has been OOB and ambulating. Wants to go home. <Brina Guzman PA-C - Last Filed: 02/19/22 08:01> Physical Exam Vital Signs: Vital Signs: Last Vital Signs Temp 98.6 F 02/18/22 23:47 Pulse 64 02/18/22 23:47 Resp 14 02/18/22 23:47 BP 109/50 L 02/18/22 23:47 Pulse Ox 94 02/18/22 23:47 BMI result Body Mass Index 29.0 <Brina Guzman PA-C - Last Filed: 02/19/22 08:01> Const: General: comfortable, no acute distress and alert <Brina Guzman PA-C - Last Filed: 02/19/22 08:01> Resp: Effort & Inspection: normal respiratory effort <Brina Guzman PA-C - Last Filed: 02/19/22 08:01> GI: Inspection: No distended <JUAN PABLO Martinez Last Filed: 02/19/22 08:01> Palpation (GI): Soft to palpation, Tenderness to palpation present (GI) (very mild to deep in LLQ), no guarding and not rigid <Brina Guzman PA-C - Last Filed: 02/19/22 08:01> Percussion: Yes normal to percussion <JUAN PABLO Martinez Last Filed: 02/19/22 08:01> Skin: General skin exam: no rashes or lesions noted <JUAN PABLO Martinez Last Filed: 02/19/22 08:01> Extrem: General: Yes no clubbing, cyanosis or edema <JUAN PABLO Martinez Last Filed: 02/19/22 08:01> Objective Data Active Medications Acetaminophen (Acetaminophen 325 Mg Tablet) 650 mg PO QID PRN PRN Reason: headache, temp > 101 Last Admin: 02/18/22 22:03 Dose: 650 mg Documented by: JEANETTE Heparin Sodium (Porcine) (Heparin Sodium,Porcine 5,000 Unit/Ml Vial) 5,000 unit SUBCUT Q12H [facility] Last Admin: 02/18/22 19:26 Dose: 5,000 unit Documented by: LULY Lactated Ringer's (Lr) 1,000 mls @ 100 mls/hr IVCONT .Q10H [facility] Last Infusion: 02/19/22 05:36 Dose: 100 mls/hr Documented by: MARKO Morphine Sulfate (Morphine Sulfate 2 Mg/Ml Cartridge) 2 mg IVPUSH Q3H PRN; Protocol PRN Reason: Pain, Severe (Pain Scale 7-10) Last Admin: 02/18/22 19:33 Dose: 2 mg Documented by: LULY Ondansetron HCl (Ondansetron Hcl 4 Mg/2 Ml Vial) 4 mg IVPUSH Q8H PRN PRN Reason: nausea Last Admin: 02/18/22 19:26 Dose: 4 mg Documented by: LULY Sodium Chloride (0.9 % Sodium Chloride Flush 3 Ml Syringe) 3 ml IVFLUSH QSHIFT [facility] Last Admin: 02/18/22 23:53 Dose: Not Given Documented by: MARKO Non-Admin Reason: IV Running <Brina Gzuman PA-C - Last Filed: 02/19/22 08:01> Labs CBC & Chem 7: : 02/19/22 05:51 02/19/22 05:51 <Brina Guzman PA-C - Last Filed: 02/19/22 08:01> Labs: Laboratory Results - last 24 hr 02/19/22 02/19/22 05:51 05:51 MCV 87.0 MCH 27.6 MCHC 31.7 RDW 12.9 Plt Count TNP MPV 12.1 Absolute Nucleated RBC 0.000 Nucleated RBC % (auto) 0.0 Anion Gap 9 L Estim Creat Clear Calc 83.0 Estimated GFR > 60 Random Glucose 89 Calcium 8.9 D <Brina Guzman PA-C - Last Filed: 02/19/22 08:01> Procedures Date of Service Date of Service: 02/19/22 <Brina Guzman PA-C - Last Filed: 02/19/22 08:01> Progress Note: A&P Assessment and plan (1) Partial bowel obstruction: Status: Acute <Brina Guzman PA-C - Last Filed: 02/19/22 08:01> Assessment and Plan: had been seen and examined independently - agree with OCTAVIO Guzman <Yonis Galan MD - Last Filed: 02/20/22 14:47> Plan 56 year old female admitted with PSBO. Appears to be resolved- symptoms improved and now with some evidence of GI function. VSS. Abd exam benign- soft, ND, some very mild tenderness in LLQ. F/u AXR this morning was unremarkable- no SB dilatation or air fluid levels. Plan: Advance to clear liquid diet. If tolerating, will advance further to solids. Continue to encourage OOB/ambulation. Home when tolerating solid diet. Patient comfortable with plan. <Brina Guzman PA-C - Last Filed: 02/19/22 08:01> Time Spent With Patient Time: Total time spent is greater than 50% in coordination of care (as documented) at patient's floor/unit and/or counseling patient: <Brina Guzman PA-C - Last Filed: 02/19/22 08:01> Quality Stroke Does the patient have a stroke diagnosis?: No <Brina Guzman PA-C - Last Filed: 02/19/22 08:01> VTE Prior VTE?: No <Brina Guzman PA-C - Last Filed: 02/19/22 08:01> VTE Risk Level:: Medical - moderate - high <Brina Guzman PA-C - Last Filed: 02/19/22 08:01> VTE Device Contraindication: N/A - Device Ordered <Brina Guzman PA-C - Last Filed: 02/19/22 08:01> VTE Drug Contraindication: N/A - Med Ordered <Brina Guzman PA-C - Last Filed: 02/19/22 08:01>
[2022-02-19] MEDS: 0.9 % Sodium Chloride Flush 3 ML SYRINGE IVFLUSH (09:45)
[2022-02-19] MEDS: Heparin Sodium,Porcine 5,000 UNIT/ML VIAL 5000 UNIT SUBCUT ×2 (09:45→21:05)
[2022-02-19] MEDS: Lactated Ringers 1,000 ML 100 ML IVCONT (09:46)
[2022-02-19] MEDS: Acetaminophen 325 MG TABLET 650 MG PO (09:55)
--- NOTE | 2022-02-19 14:40 | MHC.CM.PN ---
nurse silvia occupational therapist rehab manager note met with patient she was admitted with psbo , met with her today , and she reports she is feeling better and has been ambulating in the hallways , she is on clear liquids diet and the surgeon will be around this afternoon to see if thye can advance her diet and if toleratint it she possible could be d/c late this eveinging or tomnorrow discharge plan home no services transportation family will need note to return back to work
[2022-02-19 16:00] VITALS: BP 137/65; PULSE 61; RESP 17; TEMP 36.6; O2SAT 99
[2022-02-19] MEDS: Lactated Ringers 1,000 ML 60 ML IVCONT (21:06)
[2022-02-19 23:46] VITALS: BP 112/58; PULSE 63; RESP 17; TEMP 36.5; O2SAT 96
[2022-02-20 08:00] VITALS: BP 151/68; PULSE 68; RESP 18; TEMP 36.4; O2SAT 98
--- NOTE | 2022-02-20 09:21 | PM.PNGS ---
Subjective Subjective Date of Service: 02/20/22 Interval history: continues to feel well tolerating diet good flatus denies abdl pain Physical Exam Vital Signs: Vital Signs: Last Vital Signs Temp 97.6 F 02/20/22 08:00 Pulse 68 02/20/22 08:00 Resp 18 02/20/22 08:00 BP 151/68 H 02/20/22 08:00 Pulse Ox 98 02/20/22 08:00 BMI result Body Mass Index 29.0 Const: General: comfortable and no acute distress Resp: Effort & Inspection: normal respiratory effort Cardio: Rate: regular rate GI: Palpation (GI): Soft to palpation, not firm and nontender Objective Data Active Medications Acetaminophen (Acetaminophen 325 Mg Tablet) 650 mg PO QID PRN PRN Reason: headache, temp > 101 Last Admin: 02/19/22 09:55 Dose: 650 mg Documented by: TERESA Heparin Sodium (Porcine) (Heparin Sodium,Porcine 5,000 Unit/Ml Vial) 5,000 unit SUBCUT Q12H [facility] Last Admin: 02/20/22 08:51 Dose: Not Given Documented by: THOMPSON Non-Admin Reason: Patient Refused Lactated Ringer's (Lr) 1,000 mls @ 60 mls/hr IVCONT .[id number] [facility] Last Admin: 02/19/22 21:06 Dose: 60 mls/hr Documented by: CINDI Morphine Sulfate (Morphine Sulfate 2 Mg/Ml Cartridge) 2 mg IVPUSH Q3H PRN; Protocol PRN Reason: Pain, Severe (Pain Scale 7-10) Last Admin: 02/18/22 19:33 Dose: 2 mg Documented by: LULY Ondansetron HCl (Ondansetron Hcl 4 Mg/2 Ml Vial) 4 mg IVPUSH Q8H PRN PRN Reason: nausea Last Admin: 02/18/22 19:26 Dose: 4 mg Documented by: LULY Sodium Chloride (0.9 % Sodium Chloride Flush 3 Ml Syringe) 3 ml IVFLUSH QSHIFT [facility] Last Admin: 02/20/22 07:27 Dose: Not Given Documented by: THOMPSON Non-Admin Reason: IV Running Labs CBC & Chem 7: 02/19/22 05:51 02/19/22 05:51 Procedures Date of Service Date of Service: 02/20/22 Progress Note: A&P Assessment and plan (1) Partial bowel obstruction: Status: Acute Assessment and Plan: likely from postop adhesions completely resolved tolerating diet well good flatus ok to dc home pt aware that SBO may recur Time Spent With Patient Time: Total time spent is greater than 50% in coordination of care (as documented) at patient's floor/unit and/or counseling patient: Quality Stroke Does the patient have a stroke diagnosis?: No VTE Prior VTE?: No VTE Risk Level:: Medical - moderate - high VTE Device Contraindication: N/A - Device Ordered VTE Drug Contraindication: N/A - Med Ordered
--- NOTE | 2022-02-20 11:19 | MHC.CM.PN ---
HOME - SELF CARE PATIENT HAD TRANSPORTATION HOME ARRANGED.
--- NOTE | 2022-02-24 13:36 | P.DS_ITS ---
DS: Providers Provider Date of Service: 02/20/22 Date of admission: 02/18/22 07:55 Primary care physician: Carolin Finley NP Attending physician on admission: Yonis Galan Attending physician on discharge: Yonis Galan DS: Diagnosis Discharge Diagnosis (1) Partial bowel obstruction: Status: Acute DS: Summary Hospital Course Hospital Course: BRIEF HPI: Evelyn Warner is a 56 year old female who started to have diffuse abdominal pain at around 02:00 o'clock yesterday afternoon. She says this persisted throughout the day. She started to have nausea later yesterday and multiple episodes of vomiting at home. She therefore came to the ER last night. She says she had a similar episode while on vacation in [place] about 5 years ago and was admitted because of bowel obstruction. She describes having h ysterectomy about 10 years ago for fibroids. She also says she has some water stools yesterday. She denies recall of flatus since yesterday. She had dry heaving until midnight but says she started to feel a lot more comfortable early this morning. Her CAT scan was suggestive of mild small-bowel obstruction with a likely transition point in the right lower quadrant. HOSPITAL COURSE: The patient was admitted to the surgical service for further treatment of the SBO. She was kept NPO, on IVF, with PRN analgesics and antiemetics. She had an uncomplicated and quick recovery course. She felt improved on HD #1 and began to pass flatus. Her abdominal pain resolved. Her f/u AXR showed no dilated or fluid filled SB loops. She was advanced to a clear liquid diet. She was ambulated. She was reassessed later in the evening and was tolerating clears and felt ready for solid food. She was advanced to a low residue diet. The following morning, she continued to feel well and remain asymptomatic. She was tolerating a solid diet with evidence of GI function. Her abdomen remained benign and soft. She felt ready for discharge to home. She was discharged to home on 02/20/22 in stable condition. She is to follow up with her PCP upon discharge. Status at Discharge Functional status at discharge: independent ambulation Overall status at discharge: patient is back to baseline Time Spent with Patient Time attestation: Total time spent providing and/or coordinating discharge services: Discharge coordination time: Less than 30 minutes Quality: Safe Use of Opioids Does Pt have an Active Cancer Diagnosis on the Problem List?: No Quality: Stroke Does the patient have a stroke diagnosis?: No Physical Exam Vital Signs: Vital Signs: Last Vital Signs Temp 97.6 F 02/20/22 08:00 Pulse 68 02/20/22 08:00 Resp 18 02/20/22 08:00 BP 151/68 H 02/20/22 08:00 Pulse Ox 98 02/20/22 08:00 BMI result Body Mass Index 29.0 Discharge Plan Discharge Patient Disposition: Home, Self-Care Discharge Diagnosis: SBO Referrals: Physician,Unknown J [Physician] - 1 Week Discharge Medications: Continued multivitamin Tablet 1 tab PO DAILY 0RF ascorbic acid (vitamin C) [Vitamin C] 500 mg Tablet,Chewable 500 mg PO DAILY 0RF cholecalciferol (vitamin D3) 25 mcg (1,000 unit) Tablet 25 mcg PO DAILY 0RF Discharge Orders: Discharge Order (Routine); Ordered 02/20/22 Ordered By: Yonis Galan Diet: advance to usual diet Activity on Discharge: As tolerated Stand Alone Forms: Patient Portal Discharge page Care Plan Goals: Resolution of pain. Gradual return to activity as tolerated. Health Concerns: SBO Plan of Treatment: Supportive measures F/u with PCP Assessment: Improved Discharge Date/Time: 02/20/22 10:30
== END 2022-02-20 10:30 | disposition home or self-care (01) | DRG 252 ==
LOC: HO.ED 02-18 05:57 → HO.EDOVER 02-18 08:11 → HO.S3 02-18 17:46
PROVIDERS: Admitting Provider Surgery; Emergency Provider Internal Medicine; PCP Nurse Practitioner Family; Visit Provider Surgery
DX: K91.31 Postprocedural partial intestinal obstruction (principal); D69.6 Thrombocytopenia, unspecified; M81.0 Age-related osteoporosis without current pathological fracture; Z20.822 Contact with and (suspected) exposure to COVID-19; Z79.899 Other long term (current) drug therapy
CPT/HCPCS: 36415; 74018; 74177; 80048; 80053; 83690; 85025; 85027; 87635; 96361; 96374; 96375; 96376; 99285; J2270; J2405; Q9967

== ENCOUNTER 2023-08-16 21:50 | Emergency (ER) | payer BC, SELFPAY ==
--- NOTE | ~2023-08-16 | CT_ITS ---
EXAMINATION: CT ABDOMEN AND PELVIS WITHOUT CONTRAST CLINICAL INFORMATION: Left lower quadrant tenderness COMPARISON: February 18, 2022 TECHNIQUE: Multidetector volumetric imaging was performed from the superior aspect of the liver through the pubic symphysis. Sagittal and coronal reformatted images were obtained on the technologist's workstation. This CT examination was performed using dose optimization techniques as appropriate, variously including the following: *Automated exposure control *Adjustment of mA and/or kV according to patient size (this includes techniques or standardized protocols for targeted exams where dose is matched to indication/reason for exam; i.e. extremities or head) *Use of iterative reconstruction technique DLP: 592 mGy-cm FINDINGS: LUNG BASES: The visualized lung bases are unremarkable. No pleural or pericardial effusion. LIVER, GALLBLADDER, AND BILIARY TREE: The liver is normal in size, shape, and attenuation. No focal hepatic lesion or biliary ductal dilatation is present. The gallbladder is unremarkable with no evidence of radiopaque gallstones, gallbladder wall thickening, or obvious pericholecystic inflammatory changes. PANCREAS: Unremarkable. No abnormal mass or peripancreatic inflammatory change. SPLEEN: Unremarkable. Accessory spleen present. ADRENAL GLANDS: Unremarkable. KIDNEYS AND URETERS: The kidneys are normal in size, shape, and attenuation. No hydronephrosis, hydroureter, or calculi seen. No perinephric stranding. BLADDER: Unremarkable. GASTROINTESTINAL TRACT: No dilated loops of large or small bowel are evident. No free air or significant free fluid is seen. There is trace amount of pelvic free fluid similar to previous CT scan. No pericolonic inflammatory change. Appendix appears unremarkable. There appears to be a small appendicolith about the tip. ABDOMINAL WALL: No significant hernia is appreciated. LYMPH NODES: No lymphadenopathy appreciated. VASCULAR: Unremarkable. PELVIC VISCERA: Trace free fluid. Stable about the left side of the lower pelvis which may be related to phleboliths.. Status post hysterectomy. OSSEOUS STRUCTURES: No suspicious destructive bony lesions identified. Degenerative disc disease L5-S1. CT/CT abdomen pelvis wo IV con IMPRESSION: No evidence of ileus or obstruction. No evidence of obstructive uropathy. Trace pelvic free fluid similar to previous study. Fleischner guidelines were followed.
[2023-08-16 21:53] VITALS: BP 150/79; PULSE 88; RESP 24; TEMP 36.5; O2SAT 99; BMI 27.5
[2023-08-16] MEDS: Ondansetron ODT 4 MG TAB.RAPDIS TRANSLINGU (21:58)
[2023-08-16 22:19] LABS: Basophils Percent Auto 0.4 % (0-2); Eosinophils Absolute Auto 0.1 X10*3/uL (0.0-0.4); Eosinophils Percent Auto 0.6 % (0-4); Hematocrit 41.6 % (37.0-47.0); Hemoglobin 13.7 g/dl (12.0-16.0); Imm Gran Abs Auto 0.02 X10*3/uL (0.00-0.03); Imm Gran Pct Auto 0.3 % (0.0-0.4); Lymphocytes Absolute Auto 1.8 X10*3/uL (1.2-4.9); Lymphocytes Percent Auto 23.2 % (20-40); MANUAL DIFF FLAG SCAN; Mean Corpuscular HGB Conc 32.9 g/dl (31.0-35.0); Mean Corpuscular Hemoglobin 28.1 pg (27.0-33.0); Mean Corpuscular Volume 85.2 fL (80.0-98.0); Monocytes Absolute Auto 0.5 X10*3/uL (0.1-1.2); Neutrophils Absolute Auto 5.5 x10*3/uL (2.0-8.3); Neutrophils Percent Auto 69.5 % (45-73); PLT CLUMP 1; Red Blood Count 4.88 X10*6/uL (4.20-5.50); Red Cell Distribution Width 12.5 % (11.0-16.0); SCAN SMEAR FLAG 1
[2023-08-16 22:25] LABS: Alanine Aminotransferase 27 U/L (0-31); Albumin Level 4.4 g/dL (3.5-5.0); Alkaline Phosphatase 88 U/L (39-117); Anion Gap 14 (12-20); Aspartate Amino Transferase 27 U/L (5-31); Bilirubin Direct 0.2 mg/dL (0.0-0.5); Bilirubin Total 0.6 mg/dL (0.0-1.0); Blood Urea Nitrogen 19 mg/dL (9-16); Calcium 9.7 mg/dL (8.4-10.2); Carbon Dioxide 22 mmol/L (22-29); Chloride 109 mmol/L (96-108); Creatinine Clr Calc Pharmacy 78.7; Estimated Glomerular Filt Rate > 60; Glucose Random 131 mg/dL (60-115); Potassium 3.8 mmol/L (3.3-5.1); Sodium 141 mmol/L (135-145)
[2023-08-16 22:47] LABS: Influenza A PCR NEGATIVE (Negative); Influenza B PCR NEGATIVE (Negative); Resp Syncy Virus RNA Qual PCR NEGATIVE (Negative); SARS COV2 PCR INHOUSE NEGATIVE (Negative)
[2023-08-16 22:54] LABS: White Blood Count 7.9 X10*3/uL (4.8-10.8)
[2023-08-16 22:56] LABS: SLIDE REVIEW VERIFIED
[2023-08-17 03:57] VITALS: BP 103/47; PULSE 65; RESP 18; TEMP 36.5; O2SAT 98
--- NOTE | 2023-08-17 04:03 | PC.NURSE ---
PATIENT REPORTS SHE WAS HAVING 7/10 SHARP ABDOMINAL PAIN SIMILAR TO A PREVIOUS BLOCKAGE. PT STATES SHE IS NOW 3/10 AND IS FEELING BETTER BUT STILL CRAMPY. PATIENT STATES SHE HAD 2 VOMITING EPISODES PRIOR TO COMING IN BUT NOTHING FURTHER SINCE. REPORTS INTERMITTENT NAUSEA.
[2023-08-17 05:52] VITALS: BP 115/62; PULSE 62; RESP 16; TEMP 36.5; O2SAT 98
--- NOTE | 2023-08-17 06:21 | ED_ITS ---
HPI - General Adult General Chief complaint: Abdominal Pain Stated complaint: stomach pain Time Seen by Provider: 08/17/23 06:21 Source: patient Mode of arrival: ambulatory Limitations: no limitations History of Present Illness HPI narrative: Patient is a 57-year-old female with history of hysterectomy, partial bowel obstruction x2 presenting to the emergency department with complaint epigastric abdominal pain, nausea and vomiting. Patient reports that her pain developed yesterday afternoon, she vomited at home. States that when she arrived to the emergency department last night she was medicated with Zofran which improved her nausea. Patient reports while in the waiting room her pain decreased from an 8/10 to 3/10. Also reports feeling bloated. States most recent bowel obstruction was last January. She denies any fevers. Denies any dysuria, frequency, hematuria or other urinary symptoms. Denies any chest pain or shortness of breath. She also reports intermittent bright red rectal bleeding for the past year. States that she can go a month or more without any bleeding. Reports the bleeding is not associated with bowel movements. States that she walks daily and at times after walking notes a small amount of blood in her underwear. MD complaint: Abdominal pain, nausea, vomiting Onset (ago): hour(s) Location: abdomen Radiation: non-radiation Severity scale (1-10): 3 Quality: sharp Pain Consistency: constant Relieving factors: none Exacerbating factors: none Associated symptoms: nausea/vomiting Treatments prior to arrival: none Related Data Home Medications Medication Instructions Recorded Confirmed ascorbic acid (vitamin C) 500 mg 500 mg PO DAILY 02/18/22 02/18/22 chewable tablet (Vitamin C) cholecalciferol (vitamin D3) 25 25 mcg PO DAILY 02/18/22 02/18/22 mcg (1,000 unit) tablet multivitamin 1 tab PO DAILY 02/18/22 02/18/22 Previous Rx's Medication Instructions Recorded ondansetron 4 mg disintegrating 4 mg PO Q8H PRN nausea and 08/17/23 tablet vomiting #10 tabs Allergies Allergy/AdvReac Type Severity Reaction Status Date / Time No Known Allergies Allergy Verified 11/30/21 12:49 Review of Systems 2 Review of Systems: As per HPI. Yes all other systems are reviewed and are negative Constitutional: Constitutional: Reports as per HPI PMF Past Medical History Medical History Age related osteoporosis Herniated disc Social History Social History Household Members: Spouse and Children Housing: House Do you presently have visiting nurse or other home services: No Alcohol intake: never Patient Tobacco Use Status: Never used Tobacco Smoked in Last 30 Days: No Use of substances other than those prescribed or required for medical reasons: No Any prior treatment program specific to substance use: No Advance Directives: No Advance Directives Information Provided: No service: No Current occupational status: employed Current occupation: [employer] Physical Exam ED Vital Signs: Vital Signs - 24 hr 08/16/23 21:53 08/17/23 03:57 08/17/23 05:52 Temperature 97.7 F 97.7 F 97.7 F Pulse Rate 88 65 62 Respiratory Rate 24 H 18 16 Blood Pressure 150/79 H 103/47 L 115/62 Pulse Oximetry 99 98 98 Oxygen Delivery Method Room Air Room Air Room Air BMI result Body Mass Index 27.5 Vital signs have been reviewed and appear to be correct. Blood pressure normal. Heart rate normal. Respiratory rate normal. Temperature normal. Oxygen saturation normal. Const General: cooperative, healthy appearing and no acute distress Orientation/consciousness: oriented to person, oriented to place, oriented to time and patient oriented x3 Limitations: no limitations HENMT Head: Yes normocephalic and Yes atraumatic Ears: external ears normal General nose exam: Normal external nose present Face and sinus: Yes face symmetric Mouth: oropharynx normal and moist mucous membranes Throat: Yes uvula midline Eyes Pupils: Equal, round and reactive pupils present Neck Neck: Yes normal visual inspection and Yes supple Resp Effort & Inspection: normal respiratory effort and able to speak in complete sentences Auscultation: clear to auscultation bilaterally Cardio Rate: regular rate Rhythm: regular rhythm Heart sounds: S1 normal heart sound present and S2 normal heart sound present GI Inspection: Yes normal to inspection Palpation (GI): Soft to palpation, Tenderness to palpation present (GI) in the LLQ, no guarding and No Rebound tenderness present Auscultation: normoactive bowel sounds General: Yes no CVA tenderness Back/Spine/Pelvis Back: no CVA tenderness Skin General skin exam: elasticity normal and turgor normal Neuro General: oriented to person, oriented to place, oriented to time, patient oriented x3, moves all extremities, no focal motor deficits and CN's II-XI intact bilaterally Cranial nerves: Yes Equal, round and reactive pupils present Cognition (Neuro): normal cognition Extrem General: Yes full ROM, Yes no pedal edema and Yes no calf tenderness Psych Mental Status: mental status grossly normal Affect: normal affect Thought process: Normal thought process present Medications Administered Discontinued Medications Generic Name Dose Route Start Last Admin Trade Name Tim PRN Reason Stop Dose Admin Ondansetron HCl 4 mg 08/16/23 21:55 08/16/23 21:58 Ondansetron Odt 4 Mg Tab.Rapdis TRANSLINGU 08/16/23 21:56 4 mg ONCE ONE Administration Medical Decision Making Medical Decision Making [facility] Narrative: Patient is a 57-year-old female with history of hysterectomy, partial bowel obstruction x2 presenting to the emergency department with complaint epigastric abdominal pain, nausea and vomiting. On exam patient is awake, A+Ox3, VS WNL, afebrile, normal neurological exam without focal deficits, physical exam findings as above. Given reported symptoms and physical exam findings, initial differential includes bowel obstruction, diverticulitis, UTI/pyelonephritis, renal colic. Labs notable for no leukocytosis, no anemia, no significant electrolyte abnormalities. CT notable for no evidence of obstruction, diverticulitis, obstructive uropathy. My interpretation is in agreement with the radiologist's interpretation. UA positive for 2+ leukocytes, 21-50 WBCs. Results discussed with patient and all questions answered. Will defer treatment for UTI at this time as patient denies any urinary symptoms but advised patient that she will be contacted if urine cultures positive. Patient declining rectal exam but discussed that intermittent minor bleeding likely related to hemorrhoids. Will prescribe Zofran as needed for nausea. Instructed patient to follow-up with primary care provider. Return precautions discussed at bedside. Patient verbalized understanding of and agreement with plan. Differential Diagnosis Differential Diagnoses: The differential diagnosis associated with the presentation includes As per MDM. Admission/Observation Consideration of admission/observation: Escalation of care including admission/observation considered Lab Data [facility] Lab Attestation statement: I reviewed the patient's lab results. As per MDM. 08/16/23 22:04 08/16/23 22:04 Labs: Lab Results 08/16/23 08/17/23 Range/Units 22:04 06:46 WBC 7.9 (4.8-10.8) X10*3/uL RBC 4.88 (4.20-5.50) X10*6/uL Hgb 13.7 (12.0-16.0) g/dl Hct 41.6 (37.0-47.0) % MCV 85.2 (80.0-98.0) fL MCH 28.1 (27.0-33.0) pg MCHC 32.9 (31.0-35.0) g/dl RDW 12.5 (11.0-16.0) % Plt Count MEDICAL CODING TECHNICIAN MPV Not Reportable Immature Gran % (Auto) 0.3 (0.0-0.4) % Neut % (Auto) 69.5 (45-73) % Lymph % (Auto) 23.2 (20-40) % [place] % (Auto) 6.0 (2-11) % Eos % (Auto) 0.6 (0-4) % Baso % (Auto) 0.4 (0-2) % Lymph # (Auto) 1.8 (1.2-4.9) X10*3/uL [place] # (Auto) 0.5 (0.1-1.2) X10*3/uL Eos # (Auto) 0.1 (0.0-0.4) X10*3/uL Baso # (Auto) 0.0 (0.0-0.2) X10*3/uL Abs Immat Gran (auto) 0.02 (0.00-0.03) X10*3/uL Absolute Neuts (auto) 5.5 (2.0-8.3) x10*3/uL Absolute Nucleated RBC 0.000 (0.0-0.012) X10*3/uL Nucleated RBC % (auto) 0.0 (0.0-0.2) /100WBC Smear Tech's Comments VERIFIED Sodium 141 (135-145) mmol/L Potassium 3.8 (3.3-5.1) mmol/L Chloride 109 H (96-108) mmol/L Carbon Dioxide 22 (22-29) mmol/L Anion Gap 14 (12-20) BUN 19 H (9-16) mg/dL Creatinine 0.76 (0.5-1.4) mg/dL Estim Creat Clear Calc 78.7 Estimated GFR > 60 Random Glucose 131 H (60-115) mg/dL Calcium 9.7 D (8.4-10.2) mg/dL Total Bilirubin 0.6 (0.0-1.0) mg/dL Direct Bilirubin 0.2 (0.0-0.5) mg/dL AST 27 (5-31) U/L ALT 27 (0-31) U/L Alkaline Phosphatase 88 (39-117) U/L Total Protein 8.0 (6.5-8.0) g/dL Albumin 4.4 (3.5-5.0) g/dL Urine Color Yellow Urine Appearance Clear Urine pH 5.0 (5.0-9.0) Ur Specific [place] 1.025 (1.005-1.025) Urine Protein Negative (Neg-Trace) mg/dL Urine Glucose (UA) Negative (Negative) mg/dL Urine Ketones Negative (Negative) mg/dL Urine Blood Negative (Negative) Urine Nitrite Negative (Negative) Ur Leukocyte Esterase Moderate (2+) H (Negative) Urine RBC 0-2 (0-2) /HPF Urine WBC 21-50 H (0-5) /HPF Ur Squamous Epith Cells 0-2 (0-2) /HPF Urine Bacteria None Seen (None Seen) Hyaline Casts 0-2 (0-2) /LPF Influenza Type A (PCR) NEGATIVE (Negative) Influenza Type B (PCR) NEGATIVE (Negative) RSV RNA Qual (PCR) NEGATIVE (Negative) SARS-CoV-2 RNA (RT-PCR) NEGATIVE (Negative) Independent Interpretation I performed an independent interpretation of an: CT Scan Interpretation: No evidence of obstruction, diverticulitis, renal calculi. Radiology Impression Discussion of test interpretation with radiology: I have reviewed the radiologist's reading. Radiologist Impression: CT/CT abdomen pelvis wo IV con IMPRESSION: No evidence of ileus or obstruction. No evidence of obstructive uropathy. Trace pelvic free fluid similar to previous study. Fleischner guidelines were followed. External Record Review External record reviewed: Inpatient record, Office record and Outpatient record Prescription Management I considered prescription management with: Other Discharge Plan Discharge Clinical Impression: Abdominal pain Patient Disposition: Home, Self-Care Instructions: Abdominal Pain (ED) Additional Instructions: You have been evaluated in the emergency department today for abdominal pain. Your evaluation did not show evidence of medical conditions requiring emergent intervention at this time. Please schedule an appointment with your primary care physician. You are being prescribed ondansetron which you can use every 8 hours as needed for nausea. Return to the emergency department if you experience worsening or uncontrolled pain, fevers 100.4? F or greater, recurrent vomiting, inability to tolerate food or fluids by mouth, bloody stools or vomit, black or tarry stools, or any other concerning symptoms. Prescriptions: New ondansetron 4 mg tablet,disintegrating 4 mg PO Q8H PRN (Reason: nausea and vomiting) Qty: 10 0RF No Action multivitamin Tablet 1 tab PO DAILY ascorbic acid (vitamin C) [Vitamin C] 500 mg Tablet,Chewable 500 mg PO DAILY cholecalciferol (vitamin D3) 25 mcg (1,000 unit) Tablet 25 mcg PO DAILY
[2023-08-17 06:51] LABS: Appearance Urine Clear; Color Urine Yellow; Glucose Urine UA Negative (Negative); Leukocyte Esterase Urine Moderate (2+) (Negative); Nitrite Urine Negative (Negative); Specific Gravity - Urine 1.025 (1.005-1.025); UMIC TRIGGER UACC YES; Urine Blood Negative (Negative); Urine Ketones Negative (Negative); Urine Protein Negative (Neg-Trace)
[2023-08-17 06:58] LABS: Bacteria Urine None Seen (None Seen); Hyaline Casts Urine 0-2 /LPF (0-2); RBC Urine 0-2 /HPF (0-2); Squamous Epithelial Cell Urine 0-2 /HPF (0-2); UACC Culture Trigger YES; WBC Urine 21-50 /HPF (0-5)
== END 2023-08-17 08:53 | disposition home or self-care (01) ==
PROVIDERS: Registered Nurse Emergency; Emergency Provider Emergency Medicine; PCP Nurse Practitioner Family
DX: R10.32 Left lower quadrant pain (principal); Z20.822 Contact with and (suspected) exposure to COVID-19; Z20.828 Contact with and (suspected) exposure to other viral communicable diseases
CPT/HCPCS: 0241U; 74176; 80048; 80076; 81001; 85025; 87086; 99284

== ENCOUNTER → 2024-10-09 13:23 | Outpatient (BNVA) | payer OTHER, SELFPAY | PROVIDERS: PCP Nurse Practitioner Family; Visit Provider Registered Nurse | DX: S30.0XXA Contusion of lower back and pelvis, initial encounter (principal); V49.00XA Driver injured in collision with unspecified motor vehicles in nontraffic accident, initial encounter | CPT/HCPCS: 99203 ==

== ENCOUNTER → 2024-10-12 08:58 | Outpatient (BNVA) | payer OTHER, SELFPAY | PROVIDERS: PCP Nurse Practitioner Family; Visit Provider Registered Nurse | DX: S30.0XXA Contusion of lower back and pelvis, initial encounter (principal); V49.00XA Driver injured in collision with unspecified motor vehicles in nontraffic accident, initial encounter | CPT/HCPCS: 99213 ==

== ENCOUNTER → 2024-10-26 08:54 | Outpatient (BNVA) | payer OTHER, SELFPAY | PROVIDERS: PCP Nurse Practitioner Family; Visit Provider Registered Nurse | DX: S30.0XXD Contusion of lower back and pelvis, subsequent encounter (principal); V49.0 Driver injured in collision with other and unspecified motor vehicles in nontraffic accident | CPT/HCPCS: 99213 ==

== ENCOUNTER → 2024-11-13 08:43 | Outpatient (BNVA) | payer OTHER, SELFPAY | PROVIDERS: PCP Nurse Practitioner Family; Visit Provider Registered Nurse | DX: M54.9 Dorsalgia, unspecified (principal); Z02.79 Encounter for issue of other medical certificate | CPT/HCPCS: 99213 ==

== ENCOUNTER 2025-07-02 21:24 | Inpatient (IN) | payer BC, SELFPAY ==
--- NOTE | ~2025-07-02 | CT_ITS ---
CLINICAL HISTORY: abd pain CT ABDOMEN AND PELVIS WITH CONTRAST COMPARISON: 08/17/2023. FINDINGS: Small-bowel obstruction is present. Multiple dilated loops of mid small bowel are noted which contain fluid and some air-fluid levels, and measure up to3.4 cm in caliber, for example seen on axial image 477 of series 4. High-grade transition point is seen deep to the lower anterior abdominal wall on coronal images 23-26, and axial images 452-480. Feces is noted within the portion of small bowel just proximal to the transition point as seen on axial image 475, and the presence of feces suggests stasis. There is no pneumatosis. Small amount of pelvic free fluid is noted. No abscess. No free air. Appendix is visualized and there is no evidence of acute appendicitis. Most of the colon is markedly underdistended which precludes accurate assessment. No pericolonic inflammation. Lung bases are unremarkable. No focal liver lesion. Gallbladder is distended. No visible stone. No pericholecystic inflammation. Small hiatal hernia is noted. Stomach is significantly underdistended which precludes accurate assessment. No CT evidence of acute pancreatitis. There is mild prominence of the pancreatic duct without focal lesion spleen and adrenal glands are unremarkable. Both kidneys are unremarkable. No hydronephrosis or obstructing stone. There is inferior prolapse involving a portion of the urinary bladder, seen on sagittal image 64. Uterus is absent. Abdominal aorta is normal in caliber, without evidence of an aneurysm or dissection. No lymphadenopathy. No evidence of a bowel containing hernia. Bone windows demonstrate no acute abnormalities. There is vacuum disc degeneration at L5-S1. IMPRESSION: 1. A small-bowel obstruction is present, with multiple dilated loops of mid small bowel measuring up to 3.4 cm in caliber. High-grade transition point is visualized deep to the lower anterior abdominal wall. No pneumatosis. There is a small amount of pelvic free fluid. No abscess or free air. Surgical consultation is advised. 2. Additional findings are detailed above. This document has been electronically signed by: Yosvany Leung M.D. on 07/03/2025 00:23:55
--- NOTE | ~2025-07-02 | XR_ITS ---
CLINICAL HISTORY: post ng CHEST X-RAY FRONTAL VIEW COMPARISON: None provided. FINDINGS: A single frontal view of the chest was performed. Enteric tube is noted in satisfactory position, with side port and tip projecting in the distal stomach. Please see the CT abdomen/pelvis report from earlier this evening regarding a small-bowel obstruction. No free air. There is mild atelectasis in the left lung base. There is no pleural effusion. Lung apices are not completely included in the field of view. Cardiac silhouette is accentuated by the portable technique. The patient is rotated to the right. IMPRESSION: 1. Enteric tube in satisfactory position. 2. Mild atelectasis in the left lung base. This document has been electronically signed by: Yosvany Leung M.D. on 07/03/2025 03:20:43
[2025-07-02 21:30] VITALS: BP 129/60; PULSE 78; RESP 22; TEMP 37; O2SAT 97; BMI 27.5
--- NOTE | 2025-07-02 21:34 | ECG_ITS ---
Test Reason : EPIGASTRIC PAIN Blood Pressure : */* mmHG Vent. Rate : 72 BPM Atrial Rate : 72 BPM P-R Int : 124 ms QRS Dur : 82 ms QT Int : 420 ms P-R-T Axes : 26 40 38 degrees QTcB Int : 459 ms Normal sinus rhythm Normal ECG No previous ECGs available Referred By: Generic ED Physician Electronically Signed By: AWILDA RICHARDS MD
[2025-07-02 22:27] LABS: NRBC Abs Auto 0.000 X10*3/uL (0.0-0.012); NRBC Pct Auto 0.0 /100WBC (0.0-0.2); SCAN SMEAR FLAG 1
[2025-07-02 22:28] LABS: Hematocrit 41.0 % (37.0-47.0); Hemoglobin 14.0 g/dl (12.0-16.0); Imm Gran Abs Auto 0.01 X10*3/uL (0.00-0.03); Imm Gran Pct Auto 0.1 % (0.0-0.4); Lymphocytes Absolute Auto 1.8 X10*3/uL (1.2-4.9); MANUAL DIFF FLAG SCAN; Mean Corpuscular HGB Conc 34.1 g/dl (31.0-35.0); Mean Corpuscular Hemoglobin 28.4 pg (27.0-33.0); Mean Corpuscular Volume 83.2 fL (80.0-98.0); PLT CLUMP 1; Red Blood Count 4.93 X10*6/uL (4.20-5.50)
[2025-07-02 22:29] LABS: PLT ABN DIST 1
[2025-07-02 22:38] LABS: Anion Gap 18 (12-20); Blood Urea Nitrogen 21 mg/dL (9-16); Calcium 9.7 mg/dL (8.4-10.2); Carbon Dioxide 21 mmol/L (22-29); Chloride 108 mmol/L (96-108); Creatinine Clr Calc Pharmacy 67.9; Estimated Glomerular Filt Rate > 60; Potassium 3.6 mmol/L (3.3-5.1); Sodium 143 mmol/L (135-145)
[2025-07-02 22:46] LABS: White Blood Count 9.6 X10*3/uL (4.8-10.8)
[2025-07-02 22:47] LABS: Troponin-I High Sensitivity < 2.7 ng/L (<3.5-17.0)
--- NOTE | 2025-07-02 23:14 | ED.ABDPAIN ---
HPI - Abdominal Pain General Chief Complaint: Abdominal Pain Stated Complaint: lwr abd pain/blockage/vomit brown Time Seen by Provider: 07/02/25 22:01 History of Present Illness HPI narrative: Patient is a 59-year-old female presents today with having epigastric pain nausea vomiting extreme 10/10 since about 21:00 has a history of partial small bowel obstruction no history of abdominal surgery done in the past had previous CT scan done in 2022 which were grossly negative patient claims the symptoms were very abrupt in onset. There is no specific trigger. She is passing gas. She denies any fever chills no coughing or congestion or upper respiratory symptoms. No pain on urination. Related Data Home Medications ?Medication ?Instructions ?Recorded ?Confirmed ascorbic acid (vitamin C) 500 mg 500 mg PO DAILY 02/18/22 02/18/22 chewable tablet (Vitamin C) cholecalciferol (vitamin D3) 25 25 mcg PO DAILY 02/18/22 02/18/22 mcg (1,000 unit) tablet multivitamin 1 tab PO DAILY 02/18/22 02/18/22 Previous Rx's ?Medication ?Instructions ?Recorded ondansetron 4 mg disintegrating 4 mg PO Q8H PRN nausea and 08/17/23 tablet vomiting #10 tabs cyclobenzaprine 5 mg tablet See Rx Instructions PO TID PRN 10/09/24 muscle spasm #20 tabs ibuprofen 600 mg tablet 600 mg PO Q8H PRN pain #20 tabs 10/09/24 Allergies Allergy/AdvReac Type Severity Reaction Status Date / Time No Known Allergies Allergy Verified 07/02/25 21:33 Review of Systems Review of Systems Positive abdominal pain Positive nausea vomiting Yes all other systems are reviewed and are negative [facility] Past Medical History Attestation statement: The following information was validated with the patient. Medical History Herniated disc Age related osteoporosis Social History Social History Household Members: Spouse and Children Housing: House Do you presently have visiting nurse or other home services: No Alcohol intake: never Patient Tobacco Use Status: Never used Tobacco Use of substances other than those prescribed or required for medical reasons: No Advance Directives: No Advance Directives Information Provided: No Patient : No service: No Current occupational status: employed Current occupation: [employer] Physical Exam ED Exam Exam: Appearance: Alert. Oriented X3. No acute distress. Eyes: Pupils equal, round and reactive to light. ENT: Pharynx normal. Neck: Normal inspection. Neck supple. No lymph nodes noted. No crepitus CVS: Normal heart rate and rhythm. Pulses normal. Normal S1 and S2 Respiratory: No respiratory distress. Breath sounds normal. No Wheezing. No rales Abdomen: Soft and nontender. No rigidity. No distention. good BS x4 Skin: Skin warm and dry. Normal skin color. Normal skin turgor. Extremities: No lower extremity edema. Neurovascular intact to all extremities. No Lacerations. No Rash Neuro: Oriented X 3. No motor deficit. No sensory deficit. Moving all extermities. No slurred speech Vital Signs: Vital Signs - 24 hr 07/02/25 21:30 07/02/25 23:23 Temperature 98.6 F Pulse Rate 78 78 Respiratory Rate 22 H 16 Blood Pressure 129/60 109/46 L Pulse Oximetry 97 100 Oxygen Delivery Method Room Air Nasal Cannula Oxygen Flow Rate 3 BMI result Body Mass Index 27.5 Medical Decision Making Medical Decision Making [facility] Narrative: Sick appearing complaining of nausea vomiting extreme. Dilaudid was given fluids given. Will get a CT scan of the abdomen. Patient is 59 years old status post partial hysterectomy in the past. No other abdominal surgery. Patient's CT scan positive for small bowel obstruction. An NG tube was placed. Surgery was consulted. Patient will require admission for further evaluation. Her white count today was 10. Electrolytes showed a normal troponin. Electrolytes are normal. Will admit for further evaluation Differential Diagnosis Differential Diagnoses: The differential diagnosis associated with the presentation includes Admission/Observation Consideration of admission/observation: Escalation of care including admission/observation considered Will require admission for further evaluation Consult Healthcare Provider Management of the patient was discussed with: Insurance Territory Manager (Surgery) Lab Data [facility] Lab Attestation statement: I reviewed the patient's lab results. 07/02/25 22:14 07/02/25 22:14 Labs: Lab Results 07/02/25 Range/Units 22:14 WBC 9.6 (4.8-10.8) X10*3/uL RBC 4.93 (4.20-5.50) X10*6/uL Hgb 14.0 (12.0-16.0) g/dl Hct 41.0 (37.0-47.0) % MCV 83.2 (80.0-98.0) fL MCH 28.4 (27.0-33.0) pg MCHC 34.1 (31.0-35.0) g/dl RDW 13.0 (11.0-16.0) % Plt Count TNP MPV TNP Immature Gran % (Auto) 0.1 (0.0-0.4) % Neut % (Auto) 74.7 H (45-73) % Lymph % (Auto) 18.9 L (20-40) % [place] % (Auto) 5.7 (2-11) % Eos % (Auto) 0.3 (0-4) % Baso % (Auto) 0.3 (0-2) % Lymph # (Auto) 1.8 (1.2-4.9) X10*3/uL [place] # (Auto) 0.6 (0.1-1.2) X10*3/uL Eos # (Auto) 0.0 (0.0-0.4) X10*3/uL Baso # (Auto) 0.0 (0.0-0.2) X10*3/uL Abs Immat Gran (auto) 0.01 (0.00-0.03) X10*3/uL Absolute Neuts (auto) 7.2 (2.0-8.3) x10*3/uL Absolute Nucleated RBC 0.000 (0.0-0.012) X10*3/uL Nucleated RBC % (auto) 0.0 (0.0-0.2) /100WBC Smear Tech's Comments VERIFIED Sodium 143 (135-145) mmol/L Potassium 3.6 (3.3-5.1) mmol/L Chloride 108 (96-108) mmol/L Carbon Dioxide 21 L (22-29) mmol/L Anion Gap 18 (12-20) BUN 21 H (9-16) mg/dL Creatinine 0.86 (0.5-1.4) mg/dL Estim Creat Clear Calc 67.9 Estimated GFR > 60 Random Glucose 140 H (60-115) mg/dL Calcium 9.7 (8.4-10.2) mg/dL Troponin I High Sens < 2.7 (<3.5-17.0) ng/L Independent Interpretation I performed an independent interpretation of an: CT Scan (Small-bowel obstruction) Radiology Impression Discussion of test interpretation with radiology: I have reviewed the radiologist's reading. Independent Historian Clinical information obtained from an independent historian. History obtained from or confirmed by: Spouse External Record Review External record reviewed: Inpatient record Chronic Conditions History of partial hysterectomy Social Determinants Patient?s care significantly limited by Social Determinants of Health including: Problems related to primary support group Medications Administered Discontinued Medications Generic Name Dose Route Start Last Admin Trade Name Freq PRN Reason Stop Dose Admin Hydromorphone HCl 1 mg 07/02/25 22:40 07/02/25 22:52 Hydromorphone Hcl 1 Mg/Ml Syringe IVPUSH 07/02/25 22:41 1 mg ONCE ONE Administration Protocol Sodium Chloride 1,000 mls @ 999 mls/hr 07/02/25 22:45 07/02/25 22:55 Ns IV 07/02/25 23:45 999 mls/hr .Q1H1M BITA Administration Sodium Chloride 1,000 mls @ 999 mls/hr 07/02/25 22:45 07/02/25 22:55 Ns IV 07/02/25 23:45 999 mls/hr .Q1H1M BITA Administration Iohexol 85 ml 07/02/25 23:21 07/02/25 23:22 Iohexol 350 Mg/Ml 100 Ml Infus..Btl IV 07/02/25 23:22 85 ml ONCE ONE Administration Ondansetron HCl 4 mg 07/02/25 21:35 07/02/25 21:37 Ondansetron Odt 4 Mg Tab.Rapdis TRANSLINGU 07/02/25 21:36 4 mg ONCE ONE Administration Ondansetron HCl 4 mg 07/02/25 22:40 07/02/25 22:52 Ondansetron Hcl 4 Mg/2 Ml Vial IVPUSH 07/02/25 22:41 4 mg ONCE ONE Administration Discharge Plan Discharge Clinical Impression: SBO (small bowel obstruction) Patient Disposition: Admitted As Inpatient
[2025-07-02] MEDS: iohexoL 350 MG/ML 100 ML INFUS..BTL 85 ML IV (23:22)
[2025-07-02 23:23] VITALS: BP 109/46; PULSE 78; RESP 16; O2SAT 100
--- OUTSIDE RECORDS SUMMARY | 2025-07-02 23:39 | XMS_ITS | Clinical Summary ---
Author Organization [facility] Address [address] [place] [address] Phone Care Team Providers Care Life Science Research Assistant Name Role Phone Malia, Rebecca AYALA Primary Care Provider [phone] Encounters Date Type Department Care Team Description 05/22/2025 7:58 AM EDT - 05/22/2025 11:59 PM EDT [facility] [address] [address] Encounter for screening mammogram for breast cancer Discharge Disposition: Home or Self Care from Last 3 Months Surgical History Surgery Date Site/Laterality Comments HYSTERECTOMY Family History Medical History Relation Name Comments Breast cancer Maternal Grandmother Breast cancer Paternal Grandmother Relation Name Status Comments Maternal Grandmother Paternal Grandmother Social History Tobacco Use Types Packs/Day Years Used Date Smoking Tobacco: Never Assessed Comments No Sex and Gender Information Value Date Recorded Sex Assigned at Not on file Legal Sex Female 7:36 AM EST Gender Identity Not on file Sexual Orientation Not on file Obstetrics History Para Term AB IAB SAB Ectopic Multiple Livin g Live Births 3 Last Filed Vital Signs Vital Sign Reading Time Taken Comments Blood Pressure - - Pulse - - Temperature - - Respiratory Rate - - Oxygen Saturation - - Inhaled Oxygen Concentration - - Weight 70.3 kg (155 lb) 05/22/2025 8:04 AM EDT Height 162.6 cm (5' 4 ) 05/22/2025 8:04 AM EDT Body Mass Index 26.61 05/22/2025 8:04 AM EDT Plan of Treatment Health Maintenance Due Date Last Done Comments Cervical Cancer Screening: Pap Smear 1985 Pneumococcal Vaccine: 50+ Years (1 of 1 - PCV) 2014 Cholesterol Screening (Lipid Panel) 09/26/2022 HIV Screening 09/26/2022 Hepatitis C Screening 09/26/2022 Social Influencers of Health Screening 09/26/2022 Depression Screening 10/24/2024 COVID-19 Vaccine ( season) 2025 08/16/2022, 09/29/2021, 02/24/2021, Additional history exists Influenza Vaccine (#1) 2025 5, 01/04/2023, 10/15/2021, Additional history exists Breast Cancer Screening 05/22/2027 05/22/20 25, 05/16/2024, 04/29/2023, Additional history exists DTaP,Tdap,and Td Vaccines (2 - Td or Tdap) 12/25/2028 12/25/2018 Colorectal Cancer Screening: Colonoscopy 11/22/2033 11/22/2023 Osteoporosis Screening (Bone Density Screening) 02/16/2034 02/17/2024, 02/02/2021, 11/07/2018 RSV Immunization Adult Patients (1 - 1-dose 75+ series) 2039 Zoster Vaccines Completed 11/16/2020, 08/10/2020 HIB Vaccines Aged Out No longer eligi ble based on patient's age to complete this topic HPV Vaccines Aged Out No longer eligi ble based on patient's age to complete this topic Hepatitis A Vaccines Aged Out No long er eligible based on patient's age to complete this topic Hepatitis B Vaccines Aged Out No long er eligible based on patient's age to complete this topic IPV Vaccines Aged Out No longer eligi ble based on patient's age to complete this topic MMR Vaccines Aged Out No longer eligi ble based on patient's age to complete this topic Meningococcal ACWY Vaccine Aged Out N o longer eligible based on patient's age to complete this topic Meningococcal B Vaccine Aged Out No l onger eligible based on patient's age to complete this topic RSV Immunization Patients Under 20 months Aged Out No longer eligible based on patient's age to complete this topic Varicella Vaccines Aged Out No longer eligible based on patient's age to complete this topic Procedures Procedure Name Priority Date/Time Associated Diagnosis Comments MG MAMMO DIGITAL SCREENING W JUAN ALBERTO BILAT Routine 05/22/2025 8:11 AM EDT Encounter for screening mammogram for breast cancer JOSELYN DEXA AXIAL SKELETON Routine 02/17/2024 9:35 AM EDT Age-related osteoporosis without current pathological fracture EXTERNAL COLONOSCOPY REPORT Routine 11/22/2023 3:01 PM EST from Last 3 Months or Most Recently Relevant to Health Maintenance Results * MG Mammo Digital Screening w Juan Alberto bilat (05/22/2025 8:11 AM EDT) Anatomical Region Laterality Modality Breast Bilateral Mammography 05/22/2025 10:5 7 AM EDT Impressions 05/22/2025 11:02 AM EDT No mammographic evidence of malignancy. No suspicious interval change. A negative mammogram in the presence of a clinically suspicious palpable abnormality does not preclude the possibility of malignancy or alter the indications for biopsy. ASSESSMENT: BI-RADS 1: NEGATIVE RECOMMENDATION(S): 1: Routine screening mammogram BILATERAL in 1 year. [facility] location[facility] at [address], [address] -------- FINAL REPORT -------- Dictated By: Fadi Guadalupe Dictated Date: 05/22/2025 10:57 ET Assigned Physician: Fadi Guadalupe Reviewed and Electronically Signed By: Fadi Guadalupe Signed Date: 05/22/2025 11:02 ET Workstation ID: [id number] Transcribed By: Self Edit Transcribed Date: 05/22/2025 10:57 ET Narrative 05/22/2025 11:02 AM EDT EXAM: SCREENING MAMMOGRAPHY, BILATERAL HISTORY: SCREENING. Family history of breast cancer, maternal grandmother, paternal grandmother. COMPARISON: 05/16/24, 04/29/23, 04/02/22, 02/02/21 TECHNIQUE: Synthesized CC and MLO projections of each breast. Tomosynthesis of each breast in the CC and MLO projections. ADDITIONAL IMAGING: None Computer-aided detection was employed with the [employer] [place] AI 3-D. TISSUE DENSITY: There are scattered areas of fibroglandular density. (BI-RADS category B) FINDINGS: RIGHT BREAST: No suspicious mass. No suspicious calcification. No distortion. No additional suspicious right breast findings LEFT BREAST: No suspicious mass. No suspicious calcification. No distortion. No additional suspicious left breast findings Procedure Note Fadi Guadalupe MD - 05/22/2025 EXAM: SCREENING MAMMOGRAPHY, BILATERAL HISTORY: SCREENING. Family history of breast cancer, maternalgrandmother, paternal grandmother. COMPARISON: 05/16/24, 04/29/23, 04/02/22, 02/02/21 TECHNIQUE: Synthesized CC and MLO projections of each breast.Tomosynthesis of each breast in the CC and MLO projections. ADDITIONAL IMAGING: None Computer-aided detection was employed with the [employer] [place] AI 3-D. TISSUE DENSITY: There are scattered areas of fibroglandular density.(BI-RADS category B) FINDINGS: RIGHT BREAST: No suspicious mass. No suspicious calcification. No distortion. Noadditional suspicious right breast findings LEFT BREAST: No suspicious mass. No suspicious calcification. No distortion. Noadditional suspicious left breast findings IMPRESSION: No mammographic evidence of malignancy. No suspicious interval change. A negative mammogram in the presence of a clinically suspicious palpableabnormality does not preclude the possibility of malignancy or alter theindications for biopsy. ASSESSMENT: BI-RADS 1: NEGATIVE RECOMMENDATION(S): 1: Routine screening mammogram BILATERAL in 1 year. [facility]amm[facility] location[facility] at [address], [address] -------- FINAL REPORT -------- Dictated By: Fadi Guadalupe Dictated Date: 05/22/2025 10:57 ET Assigned Physician: Fadi Guadalupe Reviewed and Electronically Signed By: Fadi Guadalupe Signed Date: 05/22/2025 11:02 ET Workstation ID: [id number] Transcribed By: Self Edit Transcribed Date: 05/22/2025 10:57 ET us Self Referral Sppl IMG BI PROCEDURES Final Resul t * JOSELYN DEXA AXIAL SKELETON (02/17/2024 9:35 AM EDT) Anatomical Region Laterality Modality Mammography 02/17/2024 8:43 AM EDT Narrative [facility]/17[facility]2024 [facility] [address] [place] [id number] Patient: PORFIRIOTASHAMARA/Age/Sex: 1965 - 58 - F Unit#: [id number] Location/Status: SPDIMAM/REG CLI [facility]em[facility] Ordering Physician: REBECCA FINLEY DANCE COACH Joselyn Dexa Axial Skeleton - 02/17/24930 Report Status:Signed HISTORY: The patient is a 58-year-old postmenopausal female with clinical concern for metabolic bone disease. FINDINGS: Dual energy x-ray absorptiometry of the lumbar spine and femurs is performed. The mean bone mineral density at L3-4 is 0.877 gm/cm2 which is 73% of that of young normals and 81% of that of age matched controls. This yields a T- score of -2.7 and a Z-score of -1.7 which is diagnostic of osteoporosis. The mean bone mineral density of the femurs bilaterally is 0.894 gm/cm2 which is 89% of that of young normals and 98% of that of age matched controls. This yields a T-score of -0.9 and a Z-score of -0.2 and there is therefore no evidence of osteoporosis or osteopenia here. However, the T-score of the right femoral neck is -2.1 and that of the left femoral neck is -2.1 which is diagnostic of osteopenia. IMPRESSION: 1. Osteoporosis. There has been a decrease of 0.6% in bone mineral density in the lumbar spine since the prior examination of 02/02/2021. There has been an increase of 0.5% in bone mineral density in the right femur and a decrease of 0.5% in bone mineral density in the left femur. 2. FRAX analysis yields a 10-year probability of major osteoporotic fracture of 16.5% and a 10-year probability of hip fracture of 2.4%. Code 33501 Dictating Physician: BLU WHALEY MD Electronically Signed by: BLU WHALEY MD Dic Date/Time: 02/17/24933 Sign date/Time: 02/17/24934 Procedure Note Blu Whaley MD - 06/11/2024 [facility] Diagnostic Imaging Department [address] [place], [place] [id number] Patient: LINWOODMARA BENSON Rosa /Age/Sex: 1965 58 - Unit#: [id number] Location/Status: [facility] Mnemonic[facility] Ordering Physician: REBECCA FINLEY DANCE COACH Joselyn Dexa Axial Skeleton - 02/17/24930 Report Status:Signed HISTORY: The patient is a 58-year-old postmenopausal female withclinical concern for metabolic bone disease. FINDINGS: Dual energy x-ray absorptiometry of the lumbar spine and femursis performed. The mean bone mineral density at L3-4 is 0.877 gm/cm2 which is73% of that of young normals and 81% of that of age matched controls. This yieldsa T- score of -2.7 and a Z-score of -1.7 which is diagnostic of osteoporosis. The mean bone mineral density of the femurs bilaterally is 0.894 gm/qn7xhbtz is 89% of that of young normals and 98% of that of age matched controls.This yields a T-score of -0.9 and a Z-score of -0.2 and there is therefore no evidence of osteoporosis or osteopenia here. However, the T-score of theright femoral neck is -2.1 and that of the left femoral neck is -2.1 which is diagnostic of osteopenia. IMPRESSION: 1. Osteoporosis. There has been a decrease of 0.6% in bone mineraldensity in the lumbar spine since the prior examination of 02/02/2021. There has beenan increase of 0.5% in bone mineral density in the right femur and a decreaseof 0.5% in bone mineral density in the left femur. 2. FRAX analysis yields a 10-year probability of major osteoporoticfracture of 16.5% and a 10-year probability of hip fracture of 2.4%. Code 81931 Dictating Physician: BLU WHALEY MD Electronically Signed by: BLU WHALEY MD Dic Date/Time: 02/17/24 0934 Sign date/Time: 02/17/24 0935 [facility] Malia DANCE COACH IMG BI PROCEDURES Final Result * External Colonoscopy Report (11/22/2023 3:01 PM EST) Anatomical Region Laterality Modality Endoscopy Historical Provider GI~PROCEDURE ORDERABLES F inal Result from Last 3 Months or Most Recently Relevant to Health Maintenance Insurance [facility] Care Teams Life Science Research Assistant Relationship Specialty Start Date End Date Rebecca Finley NP [address] [facility] [place] [address] PCP - General Nurse Practitioner 05/22/25
--- OUTSIDE RECORDS SUMMARY | 2025-07-02 23:40 | XMS_ITS | Patient Health Record ---
Author Organization [facility] vicky Sherrill Address [address] [place] [address] Care Team Providers Care Roll Tender Name Role Phone MaliaCarolin Primary Care Provider Connor De Paz Unavailable [phone] Reason For Referral No Information Medications Medication SIG (Take, Route, Frequency, Duration) Notes Start Date End Date Status Vitamin C 500 MG as directed Orally Active Vitamin D3 50 MCG (1999 UT) 1 capsule Or ally Once a day; Duration: 30 day(s) Active Multi Vitamin - 1 tablet Orally Once a day; Duration: 30 day(s) Active Alendronate Sodium 70 MG 1 tablet 30 min utes before the first food, beverage or medicine of the day with plain water Orally; Duration: 30 day(s) Active Immunizations Vaccine Route Administration Date Status Comme nts COVID-19 Pfizer BioNTech Vaccine Unknown 08/16/2022 Administered 2020,2020 unsur e dates Social History Alcohol Screen Question Answer Notes Did you have a drink containing alcohol in the p ast year? Yes Points 0 Interpretation Negative Problems Problem Type SNOMED Code ICD Code Onset Dates Problem Status W/U Status Risk Notes Problem Localized, primary osteoarthritis of the ankle and/or foot (104565263) Primary osteoarthrit is, right ankle and foot (M19.071) Active confirmed Plan Of Treatment Pending Test Test Name Order Date X ray : Foot, right 3V 10/05/2022 Insurance Providers Payer Name Payer Address Payer Phone Subscriber Number Group Number Insured Name Patient Relationship to Insured Coverage Start Date Coverage End Date [facility] [address] [place] [address] [id number] Fabio Ku Spouse - patient is the spouse of the insured Medical (General) History Medical History History ICD Code Back,Hip,and Knee pain Broken bones covid-19 Osteoporosis Sciatica Chicken pox Transfusions Surgical History Surgery Date(Month/Year) hysterectomy back surgery Hospitalization History Reason Date(Month/Year) [facility] -intestinal blockage 4 days 2021 [facility] -concussion fell hit head on sidewal k few hrs 11/2021 [facility]-concussion fell in kitchen hit few h rs 12/2021
[2025-07-03] VITALS (8 sets, daily range): BP systolic 99–119; BP diastolic 54–68; PULSE 66–84; RESP 14–18; TEMP 36.4–37.4; O2SAT 95–98
[2025-07-03] MEDS: Lidocaine HCl 2 % Urojet 10 ML JEL.PF.APP TOPICAL (01:31)
[2025-07-03] MEDS: Dextrose 5 % and Lactated Ring 1,000 ML 125 ML IVCONT ×3 (01:34→19:22)
[2025-07-03 05:10] LABS: Hematocrit 37.8 % (37.0-47.0); Hemoglobin 12.2 g/dl (12.0-16.0); Imm Gran Abs Auto 0.02 X10*3/uL (0.00-0.03); Imm Gran Pct Auto 0.3 % (0.0-0.4); Lymphocytes Absolute Auto 0.7 X10*3/uL (1.2-4.9); MANUAL DIFF FLAG SCAN; Mean Corpuscular HGB Conc 32.3 g/dl (31.0-35.0); Mean Corpuscular Hemoglobin 28.6 pg (27.0-33.0); Mean Corpuscular Volume 88.5 fL (80.0-98.0); NRBC Abs Auto 0.000 X10*3/uL (0.0-0.012); NRBC Pct Auto 0.0 /100WBC (0.0-0.2); PLT CLUMP 1; Red Blood Count 4.27 X10*6/uL (4.20-5.50); SCAN SMEAR FLAG 1
[2025-07-03 05:21] LABS: White Blood Count 7.0 X10*3/uL (4.8-10.8)
[2025-07-03 05:30] LABS: Anion Gap 13 (12-20); Blood Urea Nitrogen 14 mg/dL (9-16); Calcium 8.6 mg/dL (8.4-10.2); Carbon Dioxide 22 mmol/L (22-29); Chloride 111 mmol/L (96-108); Creatinine Clr Calc Pharmacy 75.8; Estimated Glomerular Filt Rate > 60; Potassium 4.2 mmol/L (3.3-5.1); Sodium 142 mmol/L (135-145)
--- NOTE | 2025-07-03 05:58 | PM.HPGS ---
History of Present Illness History of Present Illness Date of Service: 07/03/25 <Brina Guzman PA-C - Last Filed: 07/03/25 08:52> 07/03/25 <Daljit Banks MD - Last Filed: 07/03/25 10:05> Chief complaint: SBO <Brina Guzman PA-C - Last Filed: 07/03/25 08:52> Narrative: Evelyn Warner is a 59 year old female with history significant for a hysterectomy for uterine fibroids, bowel obstructions who was in her usual state of health when she developed lower and epigastric abd pain yesterday afternoon. The pain was associated with nausea and she had multiple episodes of vomiting; emesis was initially brown in nature and turned bilious. The pain became severe and worse than her prior episodes prompting her to seek evaluation in the ED. Work up included CBC, BMP, LFTs which were WNL. CT scan abd pelvis was obtained which demonstrated multiple dilated loops of small bowel with transition point deep to the lower anterior abdominal wall, no pneumatosis, small amount of pelvic free fluid. NGT was inserted in the ED. Patient has had a few episodes of SBO before all of which have resolved with nonoperative measures. This morning she feels improved with near resolution of her symptoms. She denies flatus but she did have a few loose BMs after the onset of the pain last night. NGT has had scant output since insertion. <Brina Guzman PA-C - Last Filed: 07/03/25 08:52> Review of Systems Constitutional: Constitutional: Denies chills and Denies fever(s) <Brina Guzman PA-C - Last Filed: 07/03/25 08:52> ENT: Denies dizziness <Brina Guzman PA-C - Last Filed: 07/03/25 08:52> Cardiovascular: Cardiovascular: Denies chest pain and Denies dyspnea <JUAN PABLO Martinez Last Filed: 07/03/25 08:52> Respiratory: Respiratory: Denies dyspnea <JUAN PABLO Martinez Last Filed: 07/03/25 08:52> Gastrointestinal: Gastrointestinal: Reports as per HPI, Denies hematochezia, Denies coffee ground emesis and Denies hematemesis <Brina Guzman PA-C Last Filed: 07/03/25 08:52> Genitourinary: Genitourinary: Denies dysuria <Brina Guzman PA-C Last Filed: 07/03/25 08:52> Musculoskeletal: Musculoskeletal: Denies numbness <Brina Guzman PA-C Last Filed: 07/03/25 08:52> Integumentary/Breasts: Skin/Breast: Denies rash and Denies jaundice <Brina Guzman PA-C Last Filed: 07/03/25 08:52> Neurologic: Denies dizziness and Denies numbness <Brina Guzman PA-C Last Filed: 07/03/25 08:52> PMFSH Past Medical History Medical History: Medical History (Updated 07/03/25 @ 00:51 by Ronel Tamyao MD) Herniated disc Age related osteoporosis <Brina Guzman PA-C Last Filed: 07/03/25 08:52> Surgical History Surgical History: Surgical History (Updated 07/03/25 @ 05:37 by Daljit Banks MD) H/O hysterectomy for benign disease <Brina Guzman PA-C Last Filed: 07/03/25 08:52> Social History Social History: Social History Household Members: Spouse and Children Housing: House Do you presently have visiting nurse or other home services: No Alcohol intake: never Patient Tobacco Use Status: Never used Tobacco Use of substances other than those prescribed or required for medical reasons: No Advance Directives: No Advance Directives Information Provided: No Patient : No service: No Current occupational status: employed Current occupation: lt handed/ [employer] <Brina Guzman PA-C Last Filed: 07/03/25 08:52> Meds Allergies/Adverse reactions: Allergies Allergy/AdvReac Type Severity Reaction Status Date / Time No Known Allergies Allergy Verified 07/02/25 21:33 <Brina Guzman PA-C Last Filed: 07/03/25 08:52> Active Medications: Current Medications Calcium Carbonate (Calcium Carbonate 750 Mg Tab.Chew) 750 mg PO Q4H PRN PRN Reason: Heartburn Acetaminophen (Ofirmev) 1,000 mg in 100 mls @ 400 mls/hr IV Q6H PRN PRN Reason: Pain, Mild (Pain Scale 1-3) Dextrose/Lactated Ringer's (D5lr) 1,000 mls @ 125 mls/hr IVCONT .Q8H BITA Last Admin: 07/03/25 01:34 Dose: 125 mls/hr Magnesium Hydroxide (Milk Of Magnesia 30 Ml Oral.Susp) 30 ml PO DAILY PRN PRN Reason: Constipation Melatonin (Melatonin 3 Mg Tablet) 6 mg PO BEDTIME PRN PRN Reason: Insomnia Ondansetron HCl (Ondansetron Hcl 4 Mg/2 Ml Vial) 4 mg IVPUSH QID PRN PRN Reason: Nausea Last Admin: 07/03/25 01:31 Dose: 4 mg Sodium Chloride (0.9 % Sodium Chloride Flush 3 Ml Syringe) [address] [facility] <Brina Guzman PA-C - Last Filed: 07/03/25 08:52> Home medications: Home Medications ?Medication ?Instructions ?Recorded ?Confirmed ?Last Taken ?Type acetaminophen 500 mg tablet 500 mg PO DAILY PRN Pain 07/03/25 07/03/25 06/30/25 History iszbsomi-jbah-tmgm 8 mg-folic 400 2 tab PO DAILY 07/03/25 07/03/25 07/02/25 History mcg-K 50 mcg-lutein 300 mcg tablet (Multivitamin Women 50 Plus) <Brina Guzman PA-C - Last Filed: 07/03/25 08:52> Physical Exam Vital Signs: Vital Signs: Last Vital Signs Temp 97.7 F 07/03/25 04:44 Pulse 72 07/03/25 04:44 Resp 16 07/03/25 04:44 BP 118/68 07/03/25 04:44 Pulse Ox 95 07/03/25 04:44 O2 Del Method Room Air 07/03/25 04:44 O2 Flow Rate 2 07/03/25 01:55 BMI result Body Mass Index 27.5 <JUAN PABLO Martinez Last Filed: 07/03/25 08:52> Const: General: comfortable, no acute distress and alert <Brina MeganJUAN PABLO vázquez Qian Last Filed: 07/03/25 08:52> Orientation/consciousness: patient oriented x3 <Brina AbebeJUAN PABLO vázquez Qian Last Filed: 07/03/25 08:52> HEENT: Other: NGT in place <Brina AbebeOCTAVIO vázquezLela Laughlin Last Filed: 07/03/25 08:52> Resp: Effort & Inspection: normal respiratory effort, able to speak in complete sentences and not tachypneic <Brina AbebeYULY vázquezGee Laughlin Last Filed: 07/03/25 08:52> GI: Inspection: Yes distended and Yes scar (pfannensteil scar well healed ) <Brina AbebeJUAN PABLO vázquez Qian Last Filed: 07/03/25 08:52> Palpation (GI): Soft to palpation, Tenderness to palpation present (GI) (mild LLQ tenderness) with no rebound tenderness, no guarding and not rigid <Brina AbebeYULY vázquezGee Laughlin Last Filed: 07/03/25 08:52> Percussion: Yes tympanic to percussion <Brina AbebeYULY vázquezGee Laughlin Last Filed: 07/03/25 08:52> Skin: General skin exam: no rashes or lesions noted <Brina AbebeOCTAVIO vázquezLela Laughlni Last Filed: 07/03/25 08:52> Neuro: General: patient oriented x3 and moves all extremities <Brina Guzman PA-C Qian Last Filed: 07/03/25 08:52> Results Results Labs: Short CBC 07/02/25 07/03/25 Range/Units 22:14 04:47 WBC 9.6 7.0 (4.8-10.8) X10*3/uL Hgb 14.0 12.2 (12.0-16.0) g/dl Hct 41.0 37.8 (37.0-47.0) % Plt Count TNP TNP BMP 07/02/25 07/03/25 22:14 04:47 Sodium 143 142 Potassium 3.6 4.2 Chloride 108 111 H Carbon Dioxide 21 L 22 BUN 21 H 14 Creatinine 0.86 0.77 Calcium 9.7 8.6 D <Brina Guzman PA-C - Last Filed: 07/03/25 08:52> Abdomen CT scan report/results: report reviewed and image reviewed (agree with official report) <JUAN PABLO Martinez Last Filed: 07/03/25 08:52> Additional studies: labs review <JUAN PABLO Martinez Last Filed: 07/03/25 08:52> Assessment and Plan (1) SBO (small bowel obstruction): Status: Acute <JUAN PABLO Martinez Last Filed: 07/03/25 08:52> 59 year old female with history significant for a hysterectomy for uterine fibroids presenting with acute onset of abdominal pain, nausea and vomiting with CT scan showing dilated small bowel with transition point in the lower abdomen consistent with SBO. She has been admitted to the surgical service for further treatment of the SBO. She overall feels improved and will therefore continue nonoperative measures. NGT has been inserted and will be continued to low intermittent suction for decompression for now. Cont IVF, PRN analgesics and antiemetics. Encouraged OOB/ambulation to promote GI function. Discussed proceeding with SBFT if she has no further improvement in the next few days. She is in agreement with plan. All questions answered. <Brina Guzman PA-C - Last Filed: 07/03/25 08:52> 59 year old female with history significant for a hysterectomy for uterine fibroids presenting with acute onset of abdominal pain, nausea and vomiting with CT scan showing dilated small bowel with transition point in the lower abdomen consistent with SBO. She has been admitted to the surgical service for further treatment of the SBO. She overall feels improved and will therefore continue nonoperative measures. NGT has been inserted and will be continued to low intermittent suction for decompression for now. Cont IVF, PRN analgesics and antiemetics. Encouraged OOB/ambulation to promote GI function. Discussed proceeding with SBFT if she has no further improvement in the next few days. She is in agreement with plan. All questions answered. Patient seen and examined and I agree with the above assessment and plan. Patient reports eating 2 packages of peanuts yesterday and subsequently developed the abdominal pain. She has a prior history of small-bowel obstructions on several occasions following her hysterectomy. This morning she feels much improved and actually had a bowel movement overnight. We will check back later to see if NG tube can be removed. <Daljit Banks MD - Last Filed: 07/03/25 10:05> Quality Stroke Does the patient have a stroke diagnosis?: No <Brina Guzman PA-C - Last Filed: 07/03/25 08:52> VTE Prior VTE?: No <Brina Guzman PA-C - Last Filed: 07/03/25 08:52> VTE Risk Level:: Surgical - moderate <Brina Guzman PA-C - Last Filed: 07/03/25 08:52> VTE Device Contraindication: N/A - Device Ordered <Brina Guzman PA-C - Last Filed: 07/03/25 08:52> VTE Drug Contraindication: Treatment Not Indicated <Brina Guzman PA-C - Last Filed: 07/03/25 08:52> Procedures Date of Service Date of Service: 07/03/25 <Brina Guzman PA-C - Last Filed: 07/03/25 08:52> 07/03/25 <Daljit Banks MD - Last Filed: 07/03/25 10:05>
--- NOTE | 2025-07-03 08:21 | PHA.MEDREC ---
Pharmacy Consult ? Medication Reconciliation Pharmacy has completed the medication reconciliation. Spoke to patient to confirm med list. Per patient, she finished the course of amoxicillin 500 mg on tuesday06/30/25 and is only taking women multivitamin and tylenol 500 mg prn pain.
--- NOTE | 2025-07-03 09:30 | PC.NURSE ---
Pt tolerating NG well. C/O runny nose. No other complainnts. 200ml bile output in suction canister at this time.
--- NOTE | 2025-07-03 11:23 | PC.NURSE ---
Pt ambulated to bathroom independently. C/O of throat and nasal discomfort r/t NG tube.
--- NOTE | 2025-07-03 12:07 | PC.NURSE ---
350 output from NG tube. New pain from nasal tube, admin tylenol IV> Ready to transport.
--- NOTE | 2025-07-03 13:44 | MHC.CM.PN ---
pt is indepdndent has a ride will not need services when dcd
[2025-07-04 03:20] VITALS: BP 123/58; PULSE 54; RESP 18; TEMP 35.9; O2SAT 96
[2025-07-04] MEDS: Dextrose 5 % and Lactated Ring 1,000 ML 125 ML IVCONT ×3 (04:22→21:00)
--- NOTE | 2025-07-04 07:23 | PM.PNGS ---
Subjective Subjective Date of Service: 07/04/25 Interval history: NGT removed yesterday afternoon and started on clear liquids. Denies further nausea or vomiting. Tolerating clear liquids. She does endorse some mid abdominal discomfort/cramping. Passing flatus and had a small BM overnight. Ambulating in room and halls. Would like to try food. Physical Exam Vital Signs: Vital Signs: Last Vital Signs Temp 96.7 F L 07/04/25 03:20 Pulse 54 07/04/25 03:20 Resp 18 07/04/25 03:20 BP 123/58 L 07/04/25 03:20 Pulse Ox 96 07/04/25 03:20 O2 Del Method Room Air 07/04/25 03:20 O2 Flow Rate 2 07/03/25 01:55 BMI result Body Mass Index 30.0 Const: General: comfortable, no acute distress and alert Orientation/consciousness: patient oriented x3 Resp: Effort & Inspection: normal respiratory effort GI: Inspection: Yes distended (mild, improved) Palpation (GI): Soft to palpation, Tenderness to palpation present (GI) (mild mid abdomen, LLQ) and no guarding Percussion: Yes tympanic to percussion Skin: General skin exam: no rashes or lesions noted Neuro: General: patient oriented x3 and moves all extremities Objective Data Active Medications Calcium Carbonate (Calcium Carbonate 750 Mg Tab.Chew) 750 mg PO Q4H PRN PRN Reason: Heartburn Acetaminophen (Ofirmev) 1,000 mg in 100 mls @ 400 mls/hr IV Q6H PRN PRN Reason: Pain, Mild (Pain Scale 1-3) Last Infusion: 07/03/25 13:03 Dose: Infused Documented By: ROBERTO Dextrose/Lactated Ringer's (D5lr) 1,000 mls @ 125 mls/hr IVCONT .Q8H BITA Last Admin: 07/04/25 04:22 Dose: 125 mls/hr Documented By: DIANNA Magnesium Hydroxide (Milk Of Magnesia 30 Ml Oral.Susp) 30 ml PO DAILY PRN PRN Reason: Constipation Melatonin (Melatonin 3 Mg Tablet) 6 mg PO BEDTIME PRN PRN Reason: Insomnia Ondansetron HCl (Ondansetron Hcl 4 Mg/2 Ml Vial) 4 mg IVPUSH QID PRN PRN Reason: Nausea Last Admin: 07/03/25 01:31 Dose: 4 mg Documented By: TYLER Sodium Chloride (0.9 % Sodium Chloride Flush 3 Ml Syringe) 3 ml IVFLUSH QSHIFT [facility] Last Admin: 07/04/25 00:11 Dose: Not Given Documented By: DIANNA Non-Admin Reason: IV Running Labs 07/03/25 04:47 07/03/25 04:47 Procedures Date of Service Date of Service: 07/04/25 Progress Note: A&P Assessment and plan (1) SBO (small bowel obstruction): Status: Acute Plan SBO appears to have resolved, now with good GI function. Abd with some mild mid abd/LLQ tenderness but soft. Will advance to solid diet. If tolerating without worsening pain/nausea/vomiting, stable for discharge to home later today. Patient comfortable with plan. Cont OOB/ambulation. Time Spent With Patient Time: Total time managing care of this patient today ____ minutes. Quality Stroke Does the patient have a stroke diagnosis?: No VTE Prior VTE?: No VTE Risk Level:: Surgical - moderate VTE Device Contraindication: N/A - Device Ordered VTE Drug Contraindication: Treatment Not Indicated
[2025-07-04 08:00] VITALS: BP 130/67; PULSE 66; RESP 18; TEMP 36.6; O2SAT 96
--- NOTE | 2025-07-04 10:30 | PC.NURSE ---
Addendum entered by Prema Ma RN 07/04/25 14:03: patient c/o of mild pain and discomfort after lunch, diet downgraded to clear liquids for dinner Original Note: Diet advanced to regular for breakfast, patient tolerated diet, c/o mild pain/discomfort, stated does not feel she is back to baseline. intermittent nausea, c/o intermittent sharp pain that come and goes, pain/discomfort stil at 1 out of 10
[2025-07-04 16:07] VITALS: BP 128/61; PULSE 67; RESP 18; TEMP 36.5; O2SAT 95
[2025-07-04 20:00] VITALS: BP 133/65; PULSE 74; RESP 18; TEMP 36; O2SAT 95
[2025-07-05 03:38] VITALS: BP 113/53; PULSE 56; RESP 18; TEMP 36.4; O2SAT 94
[2025-07-05] MEDS: Dextrose 5 % and Lactated Ring 1,000 ML 125 ML IVCONT (04:36)
--- NOTE | 2025-07-05 07:58 | P.PNGS_ITS ---
Subjective Subjective Date of Service: 07/05/25 Interval history: Patient feels much improved today and feels ready to go home although she has not had a bowel movement yet. She is passing flatus and feels she may have a bowel movement this morning. She did have some nausea for a short period of time after eating food yesterday and was returned to a liquid diet. This morning is much improved. Physical Exam 2 Vital Signs: Vital Signs: Last Vital Signs Temp 97.6 F 07/05/25 03:38 Pulse 56 07/05/25 03:38 Resp 18 07/05/25 03:38 BP 113/53 L 07/05/25 03:38 Pulse Ox 94 07/05/25 03:38 O2 Del Method Room Air 07/05/25 03:38 O2 Flow Rate 2 07/03/25 01:55 BMI result Body Mass Index 30.0 Const: General: no acute distress Nutritional Appearance: well nourished Orientation/consciousness: patient oriented x3 Limitations: no limitations Resp: Effort & Inspection: normal respiratory effort GI: Inspection: Yes normal to inspection and No distended Palpation (GI): S oft to palpation, nontender, no guarding and not rigid Percussion: Yes normal to percussion Auscultation: normal bowel sounds Skin: Other: Warm, dry, no rash Neuro: General: patient oriented x3 Objective Data Active Medications Calcium Carbonate (Calcium Carbonate 750 Mg Tab.Chew) 750 mg PO Q4H PRN PRN Reason: Heartburn Acetaminophen (Ofirmev) 1,000 mg in 100 mls @ 400 mls/hr IV Q6H PRN PRN Reason: Pain, Mild (Pain Scale 1-3) Last Infusion: 07/03/25 13:03 Dose: Infused Documented By: ROBERTO Dextrose/Lactated Ringer's (D5lr) 1,000 mls @ 125 mls/hr IVCONT .Q8H BITA Last Admin: 07/05/25 04:36 Dose: 125 mls/hr Documented By: ERICK Magnesium Hydroxide (Milk Of Magnesia 30 Ml Oral.Susp) 30 ml PO DAILY PRN PRN Reason: Constipation Melatonin (Melatonin 3 Mg Tablet) 6 mg PO BEDTIME PRN PRN Reason: Insomnia Ondansetron HCl (Ondansetron Hcl 4 Mg/2 Ml Vial) 4 mg IVPUSH QID PRN PRN Reason: Nausea Last Admin: 07/03/25 01:31 Dose: 4 mg Documented By: TYLER Sodium Chloride (0.9 % Sodium Chloride Flush 3 Ml Syringe) 3 ml IVFLUSH QSHIFT [facility] Last Admin: 07/04/25 22:24 Dose: Not Given Documented By: ERICK Non-Admin Reason: IV Running Labs 07/03/25 04:47 07/03/25 04:47 Procedures Date of Service Date of Service: 07/05/25 Progress Note: A&P Assessment and plan (1) SBO (small bowel obstruction): Status: Acute (2) H/O hysterectomy for benign disease: Status: Acute Plan Hospital day 3., admitted for small-bowel obstruction partial, seems to be improving with no abdominal pain this morning. She is tolerating clear liquids and continues to pass flatus. She has not had a bowel movement since day 1. Exam is benign with no tenderness to palpation. We will advance diet to regular this morning. If she has a bowel movement is tolerating regular diet she can be discharged but she understands she should not go home unless she is having a bowel movement. Time Spent With Patient Time: Total time managing care of this patient today ____ minutes. Quality Stroke Does the patient have a stroke diagnosis?: No VTE Prior VTE?: No VTE Risk Level:: Surgical - moderate VTE Device Contraindication: N/A - Device Ordered VTE Drug Contraindication: Treatment Not Indicated
[2025-07-05 08:00] VITALS: BP 122/67; PULSE 58; RESP 18; TEMP 36.4; O2SAT 96
--- NOTE | 2025-07-05 08:02 | PM.PNGS ---
Subjective Subjective Date of Service: 07/05/25 Interval history: Overall feels improved this morning. STill has some left lower abdominal discomfort but better. Began to pass more consistent flatus this AM. No BM since 07/03/25. Wants to try to eat again. Physical Exam Vital Signs: Vital Signs: Last Vital Signs Temp 97.6 F 07/05/25 03:38 Pulse 56 07/05/25 03:38 Resp 18 07/05/25 03:38 BP 113/53 L 07/05/25 03:38 Pulse Ox 94 07/05/25 03:38 O2 Del Method Room Air 07/05/25 03:38 O2 Flow Rate 2 07/03/25 01:55 BMI result Body Mass Index 30.0 Const: General: comfortable, no acute distress and alert Orientation/consciousness: patient oriented x3 Resp: Effort & Inspection: normal respiratory effort GI: Other: mildly distended mild LLQ tenderness Inspection: Yes distended Palpation (GI): Soft to palpation, not firm and no guarding Neuro: General: patient oriented x3 and moves all extremities Objective Data Active Medications Calcium Carbonate (Calcium Carbonate 750 Mg Tab.Chew) 750 mg PO Q4H PRN PRN Reason: Heartburn Acetaminophen (Ofirmev) 1,000 mg in 100 mls @ 400 mls/hr IV Q6H PRN PRN Reason: Pain, Mild (Pain Scale 1-3) Last Infusion: 07/03/25 13:03 Dose: Infused Documented By: ROBERTO Dextrose/Lactated Ringer's (D5lr) 1,000 mls @ 125 mls/hr IVCONT .Q8H [facility] Last Admin: 07/05/25 04:36 Dose: 125 mls/hr Documented By: ERICK Magnesium Hydroxide (Milk Of Magnesia 30 Ml Oral.Susp) 30 ml PO DAILY PRN PRN Reason: Constipation Melatonin (Melatonin 3 Mg Tablet) 6 mg PO BEDTIME PRN PRN Reason: Insomnia Ondansetron HCl (Ondansetron Hcl 4 Mg/2 Ml Vial) 4 mg IVPUSH QID PRN PRN Reason: Nausea Last Admin: 07/03/25 01:31 Dose: 4 mg Documented By: TYLER Sodium Chloride (0.9 % Sodium Chloride Flush 3 Ml Syringe) 3 ml IVFLUSH QSHIFT [facility] Last Admin: 07/04/25 22:24 Dose: Not Given Documented By: ERICK Non-Admin Reason: IV Running Labs 07/03/25 04:47 07/03/25 04:47 Procedures Date of Service Date of Service: 07/05/25 Progress Note: A&P Assessment and plan (1) SBO (small bowel obstruction): Status: Acute Plan Will advance back to low residue diet as tolerated. Bowel regimen. If tolerating without worsening pain/nausea/vomiting, stable for discharge to home later today. Patient comfortable with plan. Cont OOB/ambulation. If she has persistent symptoms will obtain SBFT. Time Spent With Patient Time: Total time managing care of this patient today ____ minutes. Quality Stroke Does the patient have a stroke diagnosis?: No VTE Prior VTE?: No VTE Risk Level:: Surgical - moderate VTE Device Contraindication: N/A - Device Ordered VTE Drug Contraindication: Treatment Not Indicated
[2025-07-05] MEDS: Milk of Magnesia 30 ML ORAL.SUSP PO (09:39)
[2025-07-05 14:16] VITALS: BP 168/91; PULSE 70; RESP 18; TEMP 36.4; O2SAT 98
--- NOTE | 2025-07-05 14:19 | P.DS_ITS ---
DS: Providers Provider Date of Service: 07/05/25 Date of admission: 07/03/25 00:45 Date of discharge: 07/05/25 Primary care physician: Carolin Finley NP Attending physician on admission: Daljit Banks Attending physician on discharge: Daljit Banks DS: Diagnosis Discharge Diagnosis (1) SBO (small bowel obstruction): Status: Acute DS: Summary Hospital Course Hospital Course: HPI AT ADMISSION: Evelyn Warner is a 59 year old female with history significant for a hysterectomy for uterine fibroids, bowel obstructions who was in her usual state of health when she developed lower and epigastric abd pain yesterday afternoon. The pain was associated with nausea and she had multiple episodes of vomiting; emesis was initially brown in nature and turned bilious. The pain became severe and worse than her prior episodes prompting her to seek evaluation in the ED. Work up included CBC, BMP, LFTs which were WNL. CT scan abd pelvis was obtained which demonstrated multiple dilated loops of small bowel with transition point deep to the lower anterior abdominal wall, no pneumatosis, small amount of pelvic free fluid. NGT was inserted in the ED. Patient has had a few episodes of SBO before all of which have resolved with nonoperative measures. This morning she feels improved with near resolution of her symptoms. She denies flatus but she did have a few loose BMs after the onset of the pain last night. NGT has had scant output since insertion. HOSPITAL COURSE: She was admitted to the surgical service for further treatment of the SBO. She felt improved with nonoperative measures and therefore these were continued with bowel rest, NGT to low intermittent suction, cont IVF, PRN analgesics and antiemetics. Her NGT was discontinued later that day as it had scant output. Her diet was gradually advanced as tolerated. She began to pass more consistent flatus and bowel movements. On the day of discharge, she was tolerating a solid diet without nausea or vomiting or worsening abd pain. She had good GI function. Her abdomen was benign and soft, very mild LLQ tenderness. She was recommended to continue a low fiber diet. She was discharged to home on 07/05/25. She is to follow up with her PCP upon discharge. Status at Discharge Functional status at discharge: independent ambulation Overall status at discharge: patient is progressing back to baseline Time Attestation Discharge Coordination Time (in mins): 25 Quality: Safe Use of Opioids Does Pt have an Active Cancer Diagnosis on the Problem List?: No Quality: Stroke Does the patient have a stroke diagnosis?: No Physical Exam Vital Signs: Vital Signs: Last Vital Signs Temp 97.6 F 07/05/25 14:16 Pulse 70 07/05/25 14:16 Resp 18 07/05/25 14:16 BP 168/91 H 07/05/25 14:16 Pulse Ox 98 07/05/25 14:16 O2 Del Method Room Air 07/05/25 14:16 O2 Flow Rate 2 07/03/25 01:55 BMI result Body Mass Index 30.0 Const: General: comfortable, no acute distress and alert Orientation/cons ciousness: patient oriented x3 Resp: Effort & Inspection: normal respiratory effort GI: Inspection: No distended Palpation (GI): Soft to palpation, Tenderness to palpation present (GI) (mild LLQ) and no guarding Skin: General skin exam: no rashes or lesions noted Neuro: General: patient oriented x3 and moves all extremities Discharge Plan Discharge Anticipated Discharge Date/Time: 07/05/25 14:01 Patient Disposition: Home, Self-Care Discharge Diagnosis: SBO Referrals: Carolin Finley NP [Primary Care Provider, Internal Medicine] - 1 Week Discharge Medications: Continued acetaminophen 500 mg Tablet 500 mg PO DAILY PRN (Reason: Pain) Multivitamin Women 50 Plus 8 mg iron-400 mcg-50 mcg Tablet 2 tab PO DAILY Discharge Orders: Discharge Order (Routine); Ordered 07/05/25 Ordered By: Brina Guzman Diet: low fiber diet Activity on Discharge: As tolerated Stand Alone Forms: Patient Portal Discharge page Print Language: Kosovan Activity Restrictions/Additional Instructions: Follow up with your PCP. Call Your Doctor If: ? ? -Your temperature exceeds 101.5? F? ? ? -You experience excessive pain or swelling uncontrolled by oral pain meds ? ? -You have an unexpected reaction to medication ? ? -You experience continued vomiting/nausea and are unable to tolerate oral intake Care Plan Goals: Return to baseline health and resume normal activities. Health Concerns: SBO Plan of Treatment: Supportive with NGT decompression, bowel rest, IV hydration Advancement of diet F/u with PCP Assessment: Improved
--- NOTE | 2025-07-05 14:22 | MHC.CM.PN ---
pt d home self care
--- NOTE | 2025-07-10 09:26 | P.CDIM_ITS ---
PROVIDER RESPONSE TEXT: To clarify, the appropriate diagnosis supported by the clinical indicators: Small bowel obstruction: partial SBO QUERY TEXT: PHYSICIAN'S DOCUMENTATION REQUEST Date of Query: 07/03/2025 12:35 PM EDT Patient Name: Evelyn Warner Admit Date: 07/03/2025 Dear Daljit Bakns MD, A review of the medical record indicates additional documentation may be needed. Please review below and update the documentation accordingly. Clinical Indicators: General surgery note dated 07/03/25 - SBO Acute onset of abdominal pain, nausea and vomiting with CT scan showing dilated small bowel with transition point in the lower abdomen consistent with SBO. NGT in ED. Continue IVF, PRN analgesics and antiemetics. Based on the above, could you clarify further any specifics to the documented SBO within the medical record: Small bowel obstruction partial, incomplete, complete, adynamic, volvulus, postoperative, neurogenic etc. Other specifics to SBO Other (explain) Clinically unable to determine (explain) Thank you, Pauline Miller, CCS, CDIS Use of terms such as suspected, likely, concern for, or probable (associated with a specific diagnosis that is being evaluated, monitored, or treated as if it exists) are acceptable and can be coded in the inpatient setting, when documented at the time of discharge. Please use your independent medical judgment in providing your response. THIS QUERY IS PART OF THE PERMANENT MEDICAL RECORD
== END 2025-07-05 14:43 | disposition home or self-care (01) | DRG 247 ==
LOC: HO.ED 07-03 00:50 → HO.EDOVER 07-03 00:52 → HO.SSSA 07-03 10:22 → HO.EDOVER 07-03 10:23 → HO.S3 07-03 11:00
PROVIDERS: Admitting Provider Surgery; Emergency Provider Emergency Medicine Emergency Medical Services; PCP Nurse Practitioner Family; Visit Provider Surgery
DX: K56.600 Partial intestinal obstruction, unspecified as to cause (principal); Z90.710 Acquired absence of both cervix and uterus
CPT/HCPCS: 36415; 71045; 74177; 80048; 84484; 85025; 93005; 99285; J0131; J1171; J2405; Q9967

== ENCOUNTER → 2025-07-02 21:34 | Outpatient (BNV) | payer BC, SELFPAY | PROVIDERS: Admitting Provider Surgery; Emergency Provider Emergency Medicine Emergency Medical Services; PCP Nurse Practitioner Family; Visit Provider Internal Medicine Cardiovascular Disease | DX: R10.13 Epigastric pain (principal) | CPT/HCPCS: 93010 ==

== ENCOUNTER → 2025-07-02 22:40 | Outpatient (BNV) | payer BC, SELFPAY | PROVIDERS: Admitting Provider Surgery; Emergency Provider Emergency Medicine Emergency Medical Services; PCP Nurse Practitioner Family; Visit Provider Radiology Diagnostic Radiology | DX: K56.609 Unspecified intestinal obstruction, unspecified as to partial versus complete obstruction (principal); R18.8 Other ascites | CPT/HCPCS: 74177 ==

== ENCOUNTER 2025-07-03 00:45 | Outpatient (BNV) | payer BC, SELFPAY | END 2025-07-03 01:53 | PROVIDERS: Admitting Provider Surgery; Emergency Provider Emergency Medicine Emergency Medical Services; PCP Nurse Practitioner Family; Visit Provider Radiology Diagnostic Radiology | DX: Z46.59 Encounter for fitting and adjustment of other gastrointestinal appliance and device (principal) | CPT/HCPCS: 71045 ==

== ENCOUNTER → 2025-07-03 00:45 | Outpatient (BNV) | payer BC, SELFPAY | PROVIDERS: Admitting Provider Surgery; Emergency Provider Emergency Medicine Emergency Medical Services; PCP Nurse Practitioner Family; Visit Provider Surgery | DX: K56.609 Unspecified intestinal obstruction, unspecified as to partial versus complete obstruction (principal) | CPT/HCPCS: 99222 ==